=== PATIENT | female | born 1930 | race Caucasian/White ===

== ENCOUNTER → 2016-03-26 | Outpatient (CLI) | payer BC ==
[~2016-03-26] MED LIST: LVQ750 PO; MTR600 PO; NRV5 PO; OMEP20TA PO; [UNRECOGNIZED DRUG - OTHER] PO
== END ==
LOC: C.LABFOXDH 08:40
PROVIDERS: ATTEND Internal Medicine
DX: N39.0 Urinary tract infection, site not specified (principal)

== ENCOUNTER → 2016-04-15 | Outpatient (CLI) | payer BC | END | disposition home or self-care (01) | LOC: C.LABFOXDH 08:14 | PROVIDERS: ATTEND Internal Medicine | DX: E53.8 Deficiency of other specified B group vitamins (principal) ==

== ENCOUNTER → 2016-04-17 | Outpatient (CLI) | payer BC | END | disposition home or self-care (01) | LOC: C.LABFOXDH 22:30 | PROVIDERS: ATTEND Internal Medicine | DX: N39.0 Urinary tract infection, site not specified (principal) ==

== ENCOUNTER → 2017-07-23 | Outpatient (CLI) | payer BC | END | disposition home or self-care (01) | LOC: C.LABBC 14:34 | PROVIDERS: ATTEND Internal Medicine | DX: R35.0 Frequency of micturition (principal) ==

== ENCOUNTER → 2017-10-25 | Outpatient (CLI) | payer BC ==
[~2017-10-25] MED LIST changes: +ALEN70TA4 PO; +CITA20TA4 PO; +Calcium PO; +DVN/160 PO; -LVQ750 PO; -MTR600 PO; -NRV5 PO; -OMEP20TA PO; +PRLSR20 PO; +PRMVC PV; +ZINC30TA3 PO; -[UNRECOGNIZED DRUG - OTHER] PO
== END | disposition home or self-care (01) ==
LOC: C.LABBC 09:22
PROVIDERS: ATTEND Internal Medicine
DX: R19.7 Diarrhea, unspecified (principal)

== ENCOUNTER → 2017-11-03 | Outpatient (CLI) | payer BC | END | disposition home or self-care (01) | LOC: C.LABBC 13:44 | PROVIDERS: ATTEND Internal Medicine | DX: R35.0 Frequency of micturition (principal); N39.42 Incontinence without sensory awareness ==

== ENCOUNTER 2018-12-07 12:49 | Inpatient (IN) ==
[2018-12-07] MEDS ORDERED: SODIUM CHLORIDE 0.9% 500 ML IV SCH (13:45)
[2018-12-07 13:59] LABS: Basophils # (auto) 0.01 K/uL (0-0.2); Basophils % (auto) 0.1 %; Hematocrit (blood only) 38.3 % (37-47); Hemoglobin 12.8 g/dL (12.0-16.0); Immature Granulocytes # (auto) 0.01 K/uL (0.00-0.02); Immature Granulocytes % (auto) 0.1 %; Lymphocytes # (auto) 0.83 K/uL (1.2-3.4); Lymphocytes % (auto) 8.9 %; Mean Corpuscular Hemoglobin 32.7 pg (25-34); Mean Corpuscular Hgb Conc 33.4 g/dL (32-36); Mean Corpuscular Volume 97.7 fL (80-100); Mean Platelet Volume 10.6 fL (7.4-10.4); Monocytes # (auto) 0.88 K/uL (0.11-0.59); Monocytes % (auto) 9.5 %; Neutrophils # (auto) 7.56 K/uL (1.4-6.5); Neutrophils % (auto) 81.4 %; Platelet Count 194 K/uL (130-400); RDW Standard Deviation 46.5 fL (36.4-46.3); Red Blood Count 3.92 M/uL (4.2-5.4); White Blood Count 9.29 K/uL (4.8-10.8)
--- NOTE | 2018-12-07 14:00 | XRay Report ---
XR chest 1V portable CLINICAL HISTORY: weakness COMPARISON STUDY: Chest radiograph August 16, 2017. FINDINGS: Lung volumes are normal. Lungs are clear. There is no pneumothorax or pleural effusion. Car diac size is normal. Mediastinal contours are normal. There is no evidence for pulmonary edema. Patie nt is mildly rotated. Mild left basilar opacity favors atelectasis. IMPRESSION: No acute cardiopulmonary findings. Electronically signed by: Craig Jacinto M.D. 12/07/2018 1:59 PM
[2018-12-07 14:04] LABS: INR 1.1 (0.9-1.1); Prothrombin Time 10.9 Seconds (9.0-12.0)
[2018-12-07 14:10] LABS: Alanine Aminotransferase 15 U/L (12-78); Albumin Level 3.6 gm/dl (3.4-5.0); Aspartate Aminotransferase 14 U/L (15-37); BUN Creatinine Ratio 27.8 (10-20); Blood Urea Nitrogen 49 mg/dl (7-18); Calcium 10.9 mg/dl (8.5-10.1); Carbon Dioxide 23 mmol/L (21-32); Chloride 109 mmol/L (98-107); Est GFR (African American) 28.8; Est GFR (Non-African American) 24.9; Glucose 146 mg/dl (70-99); Lipase 397 U/L (73-393); Magnesium 2.5 mg/dl (1.8-2.4); Potassium 4.5 mmol/L (3.5-5.1); Sodium 141 mmol/L (136-145)
[2018-12-07 14:21] LABS: Albumin Globulin Ratio 0.4 (0.9-2); Alkaline Phosphatase 113 U/L (45-117); Bilirubin,Total 0.4 mg/dl (0.2-1); Thyroid Stimulating Hormone 0.547 uIu/ml (0.300-4.500); Total Protein 11.6 gm/dl (6.4-8.2); Troponin I < 0.015 ng/ml (0-0.045)
[2018-12-07] MEDS ORDERED: SODIUM CHLORIDE 0.9% 500 ML IV ONE (14:57)
--- NOTE | 2018-12-07 15:53 | CT Scan Report ---
CT head/brain wo con CLINICAL HISTORY: 88 years-old Female presenting with fatigue, weakness. TECHNIQUE: Multidetector CT imaging of the head was performed without the use of intravenous contrast . IV contrast: None. One or more dose lowering techniques were used consistent with the principles of ALARA (as low as reasonably achievable), including automatic exposure control, mA or kV adjustment t o individual patient size, and/or use of iterative reconstruction. COMPARISON: 08/16/2017. CT DOSE (mGy.cm): The estimated cumulative dose is 1328.02 FINDINGS: Head Charger topogram: Unremarkable. Proportional ventricular and sulcal prominence, likely age-related parenchymal volume loss. No hemorr myrtle. Significant calcifications noted in the basal ganglia and cerebellar hemispheres. Periventricul ar and subcortical white matter hypoattenuation, nonspecific but likely indicative of chronic small v essel ischemic change. No acute territorial infarct. No mass effect or midline shift. No extra-axial fluid collection. Paranasal sinuses and mastoid air cells clear. Calvarium intact. IMPRESSION: 1. Chronic small vessel ischemic change. No acute intracranial abnormality. Electronically signed by: Otis Smith M.D. 12/07/2018 3:52 PM
--- NOTE | 2018-12-07 16:24 | CT Scan Report ---
ABDOMEN AND PELVIS CT WITHOUT CONTRAST CT DOSE: 1328.02 mGy.cm HISTORY: vomiting, weakness TECHNIQUE: Multiaxial CT images of the abdomen and pelvis were performed without contrast. A dose lo wering technique was utilized adhering to the principles of ALARA. COMPARISON STUDY: Abdomen and pelvis CT 08/17/2017. FINDINGS: Patchy densities at the lung bases favor mild dependent change. No pneumoperitoneum. No pne umatosis. The left total hip arthroplasty. Thickened trabeculae within the right hemipelvis and bilat eral femurs. This favors Paget's disease. This remains unchanged. Moderate compression deformity at L 1 demonstrating up to 50% loss of height which is new from the prior study. This is technically age i ndeterminate. However, there is no significant paravertebral edema to suggest an acute fracture. Stab le hypodense hepatic and right renal lesions. No gallbladder wall thickening. The unenhanced spleen, adrenal glands, and pancreas are unremarkable. Bilateral nephrolithiasis. No hydronephrosis. No retro peritoneal lymphadenopathy. Mild bladder wall thickening. The lower uterine segment, cervix, and vagi na are fluid-filled and distended. There is a small focus of gas within the vagina and endometrium. M ild thickening of the vaginal wall. A 6.5 cm stool ball within the rectum. Suboptimal evaluation for bowel pathology due to the lack of intravenous and oral contrast. However, there is no definite bowel wall thickening or obstruction. Normal appendix. Increase in size in the 6.2 cm septated left ovaria n cyst. IMPRESSION: 1. The lower uterine segment, cervix, and vagina are fluid-filled and distended. There is a small fo cus of gas within the vagina and endometrium. Mild thickening of the vaginal wall. This is nonspecifi c but underlying infection cannot be excluded. Clinical correlation and pelvis exam recommended for f urther evaluation. 2. Interval development of a moderate L1 compression fracture demonstrating up to 50% loss of height. However, this is technically age indeterminate and favors an old fracture. 3. Increase in size in the 6.2 cm septated left ovarian cyst. This is considered pathologic in a post menopausal female. 4. No bowel wall thickening or obstruction. 5. Normal appendix. 6. Bilateral nephrolithiasis. No hydronephrosis. Electronically signed by: Stephon Cosme M.D. 12/07/2018 4:22 PM
[2018-12-07 17:21] LABS: Appearance Urine Cloudy (Clear); Bilirubin Urine Negative (Negative); Blood Urine Trace (Negative); Color Urine Yellow; Glucose Urine UA Negative (Negative); Ketones Urine Negative (Negative); Leukocyte Esterase Urine 2+ (Negative); Nitrite Urine Negative (Negative); Protein Urine Trace (Negative); Urobilinogen Urine Negative (Negative)
[2018-12-07] MEDS ORDERED: cefTRIAXone SODIUM 1,000 MG/50 ML BAG IV STA (17:33)
[2018-12-07 17:43] LABS: Epithelial Cell Urine >30 /lpf (0-5)
[2018-12-07 17:44] LABS: Bacteria Urine 3+ (Negative)
[2018-12-07 17:49] LABS: RBC Urine 0-4 /hpf (0-4)
--- NOTE | 2018-12-07 18:00 | History & Physical Report ---
Date of Service December 07, 2018 Assessment & Plan (1) Acute UTI: This is an 88yo F [facility] resident with a PMH of vascular dementia, HTN, osteoporosis, recurrent UTIs and other medical problems listed below who presents with weakness and lethargy for the past 2 weeks and was found to have a urinary tract infection and acute kidney injury. -Has completed approximately 14 days of PO antibiotics (first Bactrim, then Macrobid) -History of recurrent UTIs in the setting of incontinence -Afebrile, hemodynamically stable. No leukocytosis. UA abnormal -Rocephin started empirically -Follow urine culture (2) PAT (acute kidney injury): Creatinine elevated to 1.78 (baseline Cr ~ 0.8) in setting of UTI, recent abx use -Gentle IV fluids -Monitor BMP (3) Generalized weakness: In setting of acute UTI -PT/OT evaluations -Fall precautions (4) Compression fracture of L1 vertebra: Back pain for past few weeks -No spinal tenderness to palpation -CT abd/pelvis with interval development of a moderate L1 compression fracture demonstrating up to 50% loss of height. However, this is technically age indeterminate and favors an old fracture -Scheduled tylenol, warm compress (5) HTN (hypertension): Continue valsartan (6) Mood disorder: Continue SSRI (7) Vascular dementia: Good comprehension but non-verbal at baseline DVT Ppx: SQ heparin Code status: FULL per discussion with daughter/POA PCP: Bryan Dispo: Observation med/surg. Discharge planning ordered. Patient seen in collaboration with Dr. Lofton. Please see addendum. History of Present Illness Chief Complaint: back pain Primary Care Provider: [facility] This is an 88yo F [facility] resident with a PMH of vascular dementia, HTN, osteoporosis, recurrent UTIs and other medical problems listed below who presents with weakness and lethargy for the past 2 weeks. Has history of recurrent UTIs in the setting of incontinence and was recently diagnosed with one at her personal care facility. She completed course of Bactrim without improvement and has been taking Macrobid for the past 3 days, per daughter at bedside. History obtained from daughter due to patient's cognitive state. Patient vomited twice today prior to arrival. Has also seemed weaker and less aware than baseline, although is essentially non-verbal with advanced dementia. Has also been mentioning back pain, which is unusual for her. Unable to obtain full ROS 2/2 cognitive state. No documented fever. Allergies Allergy/AdvReac Type Severity Reaction Status Date / Time Fish Containing Products Allergy Unknown "SEAFOOD Verified 12/07/18 14:16 ALLERGY" ; RXN = "SWELLING" iodine Allergy Unknown UNKNOWN Verified 12/07/18 14:16 shellfish derived Allergy Unknown "SWELLING" Verified 12/07/18 14:16 WITH "SEAFOOD" Home Medications Home Medications Medication Instructions Recorded Confirmed Type alendronate 70 mg PO WK #0 tab 08/16/17 12/07/18 History omeprazole 20 mg PO DAILY #0 cap 08/16/17 12/07/18 History valsartan 160 mg PO DAILY #0 tab 08/16/17 12/07/18 History zinc [Chelated Zinc] 50 mg PO DAILY #0 08/16/17 12/07/18 History citalopram 20 mg tablet 20 mg PO DAILY #7 tab 10/11/18 12/07/18 Rx cranberry 500 mg PO DAILY 12/07/18 12/07/18 History ibuprofen [IBU] 600 mg PO Q6 PRN 12/07/18 12/07/18 History nitrofurantoin monohyd/m-cryst 100 mg PO BID 12/07/18 12/07/18 History Past Med/Surg History Medical History Mood disorder (Chronic) Vascular dementia (Chronic) Surgical History H/O lithotripsy (Chronic) History of hip replacement (Chronic) Family History Other Family history non-contributory Social History Current Living Situation: Personal Care Facility Feels Safe at Home: Yes Smoking Status: Unknown if ever smoked Hx Alcohol Use: No Hx Substance Use: No Review of Systems Review of Systems: Unobtainable due to cognitive status Physical Exam Physical Exam: General Appearance: WD/WN, vitals as above, elderly female resting comfortably. Alert and cooperative but non-verbal 2/2 dementia Head: normocephalic, atraumatic Eyes: normal inspection, PERRL, conjunctivae normal, anicteric sclerae ENT: hard of hearing, external ear and nose normal, oropharynx normal Neck: trachea midline, no thyromegaly normal visual inspection Respiratory: normal respiratory effort, lungs clear to auscultation, no wheeze, rales, rhonchi. Normal insp/exp effort, no accessory muscle use Cardiovascular: regular rate, rhythm, no murmur appreciated, normal peripheral pulses. Vessels: no JVD or carotid bruit Chest: normal inspection of chest Abdomen/GI: normal bowel sounds, soft, nontender, no hepatosplenomegaly Extremities/Musculoskelatal: No TTP along thoracic or lumbar spine. No deformities visualized. No cyanosis or clubbing Neurologic: PERRL, EOMI, accommodation nl, no face palsy, no dysarthria CN's II-XI intact bilaterally and moves all extremities Psychiatric: Alert, difficult to assess orientation due to non-verbal state, follows commands, euthymic affect Skin: no rashes, normal color, warm/dry Results & Data Vital Signs (Past 12 Hours) Vital Signs Temp Pulse Pulse Resp BP BP Pulse Ox 12/07/18 14:44 79 20 133/81 97 12/07/18 13:40 95 12/07/18 12:44 37.1 C 98 H 20 127/61 92 Laboratory Results Short CBC 12/07/18 Range/Units 13:42 WBC 9.29 (4.8-10.8) K/uL Hgb 12.8 (12.0-16.0) g/dL Hct 38.3 (37-47) % Plt Count 194 (130-400) K/uL BMP 12/07/18 13:42 Sodium 141 Potassium 4.5 Chloride 109 H Carbon Dioxide 23 BUN 49 H Creatinine 1.78 H Glucose 146 H Calcium 10.9 H Cardiac Enzymes 12/07/18 12/07/18 Range/Units 13:42 13:42 Troponin I < 0.015 Cancelled (0-0.045) ng/ml Liver Function 12/07/18 Range/Units 13:42 Total Bilirubin 0.4 (0.2-1) mg/dl AST 14 L (15-37) U/L ALT 15 (12-78) U/L Alkaline Phosphatase 113 (45-117) U/L Albumin 3.6 (3.4-5.0) gm/dl Urine 12/07/18 Range/Units 14:45 Urine Color Yellow Urine Appearance Cloudy A (Clear) Urine pH 5.0 (4.5-7.5) Ur Specific [place] 1.020 (1.000-1.030) Urine Protein Trace H (Negative) Urine Glucose (UA) Negative (Negative) Supervising Physician Co-Signing Physician Notes I, Dr. Jelani Lofton, have seen and examined the patient with physician data assistant and agree with the assessment and plan as above and would like to comment that This is an 88 year old female with vascular dementia whose baseline is nonverbal with decrease level of function and more lethargy from [facility] and seen at bedside by hospitalist not to be in acute distress and was able to follow our verbal directions. History obtained from Sak[facility] [phone] On exam General: awake, nonverbal, alert, follows verbal directions Heart: regular rate Lungs: breathing on room air, no wheezing Abdomen: soft, nontender, positive bowel sounds Back: when patient's back was palpated, she did not grimace in acute pain Patient found to have URINARY TRACT INFECTION despite being on outpatient antibiotics for around 1 and a half weeks and also with ACUTE KIDNEY INJURY from urinary tract infection versus elevated creatinine from recent bactrim use. Patient to get IV ceftriaxone and IV fluids. Patient has COMPRESSION FRACTURE of L1 vertebra which is likely chronic and being managed at this time co nservatively with warm compress and analgesics. Patient found to have LEFT OVARIAN CYST. ED physician had communicated with OBGYN and medical team was told this issue can be looked into nonemergently as outpatient. Patient's daughter prefers that if outpatient intervention such as biopsy is needed then she would prefer intervention to be done in the hospital given that it is difficult to have outpatient workup performed because of patient's age, debility, and dementia My colleague Dr. Tapia will be taking over the patient's care as hospitalist physician starting on 12/08/18
--- NOTE | 2018-12-07 18:19 | Emergency Department Note ---
Entered by Andrea Smalls acting as a scribe for History of Present Illness General Chief complaint: Illness Source: patient History of Present Illness Provider complaint: Lethargy Onset (ago): hour(s) (This morning) Location: head Pain Consistency: + other (Worsening) Relieved By: + none Exacerbated By: + none Associated symptoms: + other (Nonverbal ) The patient is an 88 year old female who presents to the Emergency Room from [facility] due to the staffs concern over increased lethargy that they n oticed this morning. Per EMS, the staff at [facility] told them that the patient was having trouble swallowing this morning. They also informed EMS that the patient is lethargic, altered and weak at baseline, but today it is worse. The patient is also non verbal at baseline. Per the patient's EMR, the patient was started on Macrobid 2 days ago for a possible UTI. The patient denies any abdominal pain or nausea. HPI is limited secondary to patient's altered mental status. Home Medications Home Medications Medication Instructions Recorded Confirmed Type alendronate 70 mg PO WK #0 tab 08/16/17 12/07/18 History omeprazole 20 mg PO DAILY #0 cap 08/16/17 12/07/18 History valsartan 160 mg PO DAILY #0 tab 08/16/17 12/07/18 History zinc [Chelated Zinc] 50 mg PO DAILY #0 08/16/17 12/07/18 History citalopram 20 mg tablet 20 mg PO DAILY #7 tab 10/11/18 12/07/18 Rx cranberry 500 mg PO DAILY 12/07/18 12/07/18 History ibuprofen [IBU] 600 mg PO Q6 PRN 12/07/18 12/07/18 History nitrofurantoin monohyd/m-cryst 100 mg PO BID 12/07/18 12/07/18 History Allergies Allergy/AdvReac Type Severity Reaction Status Date / Time Fish Containing Products Allergy Unknown "SEAFOOD Verified 12/07/18 14:16 ALLERGY" ; RXN = "SWELLING" iodine Allergy Unknown UNKNOWN Verified 12/07/18 14:16 shellfish derived Allergy Unknown "SWELLING" Verified 12/07/18 14:16 WITH "SEAFOOD" Past Med/Surg History Medical History Hip pain (Acute 10/23/13) UTI (urinary tract infection) (Acute) Altered mental status (Acute 10/23/13) Vascular dementia (Chronic) Surgical History H/O lithotripsy (Chronic) History of hip replacement (Chronic) Family History Other Family history non-contributory Social History Feels Safe at Home: Yes Smoking Status: Unknown if ever smoked Review of Systems See HPI for pertinent positives & negatives. Other (Limited secondary to patient's altered mental status) Physical Exam Vital Signs Vital Signs - 24 hr 12/07/18 12:44 12/07/18 13:40 12/07/18 14:44 Temperature 37.1 C Temperature Source Oral Sepsis Recent Fever Within 48 Hours No Sepsis Action Taken by Nursing No Action Required Pulse Rate 98 H Pulse Rate [Bilateral] 79 Pulse Rate from SpO2 Sensor Respiratory Rate 20 20 Respiratory Effort / Characteristics Non-Labored Respiratory Depth Normal Blood Pressure 127/61 Blood Pressure [Right Arm] 133/81 Blood Pressure Mean 83 Blood Pressure Mean [Right Arm] 98 Blood Pressure Position Lying Pulse Oximetry 92 95 97 Oxygen Delivery Method Room Air Room Air 12/07/18 15:00 12/07/18 15:30 12/07/18 18:00 Temperature Temperature Source Sepsis Recent Fever Within 48 Hours Sepsis Action Taken by Nursing Pulse Rate 73 74 81 Pulse Rate [Bilateral] Pulse Rate from SpO2 Sensor 81 Respiratory Rate 17 16 17 Respiratory Effort / Characteristics Respiratory Depth Blood Pressure 127/67 129/60 133/68 Blood Pressure [Right Arm] Blood Pressure Mean 87 83 89 Blood Pressure Mean [Right Arm] Blood Pressure Position Pulse Oximetry 96 Oxygen Delivery Method Room Air GENERAL: Awake, in no distress, fatigued HENT: Normocephalic, atraumatic. EYES: Normal conjunctiva. Sclera non-icteric. NECK: Supple. No nuchal rigidity. RESPIRATORY: Clear to auscultation. No wheezes. Normal respiratory effort. CARDIAC: Normal rate. Normal rhythm. Extremities warm and well perfused. GI: Soft, non-distended. No tenderness to palpation. No rebound or guarding. RECTAL: Deferred. MUSCULOSKELETAL: Atraumatic. Chest examination reveals no tenderness. There is no CVA tenderness to palpation. LOWER EXTREMITIES: Calves are equal size bilaterally and non-tender. No edema NEURO: Alert to verbal stimuli. Nonverbal but occasionally shakes head. No facial droop. Moving all 4 extremities. SKIN: Warm and dry. No rash or jaundice noted. Course 1336: Past medical records reviewed. The patient was evaluated in room A10, and a complete history and physical examination were performed. 1453: I discussed the patient's case and plan with the patient's daughter. She fully understands the plan and is agreeable. 1650: I updated the patient on the results. I also inserted a urinary catheter in the patient so that she can provide a urine sample. 1652: I spoke to Dr. Haile PARKS about the patient's case. We also discussed the patient's imaging results. 1735: I reevaluated the patient and updated her and her family on the treatment plan. They are agreed with the plan. 1744: I spoke to Lore Monzon PAC under Dr. Rolly Vargas about the patient's case. They are going to accept the patient for further evaluation. Consultations Consultation #1: I spoke to Dr. Haile PARKS about the patient's case. We also discussed the patient's imaging results. Time: 16:52 Consultation #2: I spoke to Lore Monzon PAC under Dr. Rolly Vargas about the patient's case. They are going to accept the patient for further evaluation. Time: 17:44 Administered Medications Discontinued Medications Sodium Chloride (Nss) 500 mls @ 999 mls/hr IV .Q31M CED Stop: 12/07/18 14:15 Last Infusion: 12/07/18 14:46 Dose: 0 mls/hr Documented by: [id number] Admin: 12/07/18 14:09 Dose: 999 mls/hr Documented by: [id number] Sodium Chloride (Nss) 500 mls @ 999 mls/hr IV .Q31M ONE Stop: 12/07/18 15:27 Last Infusion: 12/07/18 17:49 Dose: 0 mls/hr Documented by: [id number] Admin: 12/07/18 16:48 Dose: 999 mls/hr Documented by: [id number] Ceftriaxone Sodium (Rocephin) 1,000 mg in 50 mls @ 100 mls/hr IV NOW STA Stop: 12/07/18 18:02 Last Admin: 12/07/18 17:55 Dose: 100 mls/hr Documented by: [id number] Medical Decision Making Differential Diagnosis Differential diagnoses includes but is not limited to gastritis, peptic ulcer disease, GERD, gallbladder disease, pancreatitis, small bowel obstruction, acute coronary syndrome, pericarditis, ischemic bowel, irritable bowel disease, irr itable bowel syndrome, appendicitis, diverticulitis, malignancy, hernia, urinary tract infection, torsion, perforation, trauma, infectious. Medical Records Attestation: I reviewed the patient's medical records. Home Medications Current Medication List: was personally reviewed by me Laboratory Data Attestation: I reviewed the patient's lab results. Result diagrams: 12/07/18 13:42 12/07/18 13:42 Lab Results 12/07/18 12/07/18 12/07/18 Range/Units 13:42 13:42 13:42 WBC 9.29 (4.8-10.8) K/uL RBC 3.92 L (4.2-5.4) M/uL Hgb 12.8 (12.0-16.0) g/dL Hct 38.3 (37-47) % MCV 97.7 (80-100) fL MCH 32.7 (25-34) pg MCHC 33.4 (32-36) g/dL RDW Std Deviation 46.5 H (36.4-46.3) fL RDW Coeff of Campos 13.0 (11.5-14.5) % Plt Count 194 (130-400) K/uL MPV 10.6 H (7.4-10.4) fL Immature Gran % (Auto) 0.1 % Neut % (Auto) 81.4 % Lymph % (Auto) 8.9 % Cam[place] % (Auto) 9.5 % Eos % (Auto) 0.0 % Baso % (Auto) 0.1 % Immature Gran # (Auto) 0.01 (0.00-0.02) K/uL Neut # (Auto) 7.56 H (1.4-6.5) K/uL Lymph # (Auto) 0.83 L (1.2-3.4) K/uL [place] # (Auto) 0.88 H (0.11-0.59) K/uL Eos # (Auto) 0.00 (0-0.5) K/uL Baso # (Auto) 0.01 (0-0.2) K/uL PT 10.9 (9.0-12.0) Seconds INR 1.1 (0.9-1.1) Sodium 141 (136-145) mmol/L Potassium 4.5 (3.5-5.1) mmol/L Chloride 109 H (98-107) mmol/L Carbon Dioxide 23 (21-32) mmol/L Anion Gap 9.0 (3-11) BUN 49 H (7-18) mg/dl Creatinine 1.78 H (0.6-1.2) mg/dl Est Cr Clr Drug Dosing Not Reportable Est GFR ( Amer) 28.8 Est GFR (Non-Af Amer) 24.9 BUN/Creatinine Ratio 27.8 H (10-20) Glucose 146 H (70-99) mg/dl Calcium 10.9 H (8.5-10.1) mg/dl Magnesium 2.5 H (1.8-2.4) mg/dl Total Bilirubin 0.4 (0.2-1) mg/dl AST 14 L (15-37) U/L ALT 15 (12-78) U/L Alkaline Phosphatase 113 (45-117) U/L Troponin I < 0.015 (0-0.045) ng/ml Total Protein 11.6 H (6.4-8.2) gm/dl Albumin 3.6 (3.4-5.0) gm/dl Globulin 8.0 H (2.5-4.0) gm/dl Albumin/Globulin Ratio 0.4 L (0.9-2) Lipase 397 H (73-393) U/L TSH 0.547 (0.300-4.500) uIu/ml Urine Color Urine Appearance (Clear) Urine pH (4.5-7.5) Ur Specific [place] (1.000-1.030) Urine Protein (Negative) Urine Glucose (UA) (Negative) Urine Ketones (Negative) Urine Blood (Negative) Urine Nitrite (Negative) Urine Bilirubin (Negative) Urine Urobilinogen (Negative) Ur Leukocyte Esterase (Negative) Urine RBC (0-4) /hpf Urine WBC (0-5) /hpf Ur Epithelial Cells (0-5) /lpf Urine Bacteria (Negative) 09/25/19 09/25/19 Range/Units 13:42 14:45 WBC (4.8-10.8) K/uL RBC (4.2-5.4) M/uL Hgb (12.0-16.0) g/dL Hct (37-47) % MCV (80-100) fL MCH (25-34) pg MCHC (32-36) g/dL RDW Std Deviation (36.4-46.3) fL RDW Coeff of Campos (11.5-14.5) % Plt Count (130-400) K/uL MPV (7.4-10.4) fL Immature Gran % (Auto) % Neut % (Auto) % Lymph % (Auto) % Cam[place] % (Auto) % Eos % (Auto) % Baso % (Auto) % Immature Gran # (Auto) (0.00-0.02) K/uL Neut # (Auto) (1.4-6.5) K/uL Lymph # (Auto) (1.2-3.4) K/uL Cam[place] # (Auto) (0.11-0.59) K/uL Eos # (Auto) (0-0.5) K/uL Baso # (Auto) (0-0.2) K/uL PT (9.0-12.0) Seconds INR (0.9-1.1) Sodium (136-145) mmol/L Potassium (3.5-5.1) mmol/L Chloride (98-107) mmol/L Carbon Dioxide (21-32) mmol/L Anion Gap (3-11) BUN (7-18) mg/dl Creatinine (0.6-1.2) mg/dl Est Cr Clr Drug Dosing Est GFR ( Amer) Est GFR (Non-Af Amer) BUN/Creatinine Ratio (10-20) Glucose (70-99) mg/dl Calcium (8.5-10.1) mg/dl Magnesium (1.8-2.4) mg/dl Total Bilirubin (0.2-1) mg/dl AST (15-37) U/L ALT (12-78) U/L Alkaline Phosphatase (45-117) U/L Troponin I Cancelled (0-0.045) ng/ml Total Protein (6.4-8.2) gm/dl Albumin (3.4-5.0) gm/dl Globulin (2.5-4.0) gm/dl Albumin/Globulin Ratio (0.9-2) Lipase Cancelled (73-393) U/L TSH (0.300-4.500) uIu/ml Urine Color Yellow Urine Appearance Cloudy A (Clear) Urine pH 5.0 (4.5-7.5) Ur Specific [place] 1.020 (1.000-1.030) Urine Protein Trace H (Negative) Urine Glucose (UA) Negative (Negative) Urine Ketones Negative (Negative) Urine Blood Trace H (Negative) Urine Nitrite Negative (Negative) Urine Bilirubin Negative (Negative) Urine Urobilinogen Negative (Negative) Ur Leukocyte Esterase 2+ H (Negative) Urine RBC 0-4 (0-4) /hpf Urine WBC 5-10 H (0-5) /hpf Ur Epithelial Cells >30 H (0-5) /lpf Urine Bacteria 3+ H (Negative) Imaging Data Radiologist's Impression: Radiology results as stated below per my review and the radiologist's interpretation: XR chest 1V portable CLINICAL HISTORY: weakness COMPARISON STUDY: Chest radiograph August 16, 2017. FINDINGS: Lung volumes are normal. Lungs are clear. There is no pneumothorax or pleural effusion. Cardiac size is normal. Mediastinal contours are normal. There is no evidence for pulmonary edema. Patient is mildly rotated. Mild left basilar opacity favors atelectasis. IMPRESSION: No acute cardiopulmonary findings. Electronically signed by: Craig Jacinto M.D. 12/07/2018 1:[address] head/brain wo con CLINICAL HISTORY: 88 years-old Female presenting with fatigue, weakness. TECHNIQUE: Multidetector CT imaging of the head was performed without the use of intravenous contrast. IV contrast: None. One or more dose lowering techniques were used consistent with the principles of ALARA (as low as reasonably achievable), including automatic exposure control, mA or kV adjustment to individual patient size, and/or use of iterative reconstruction. COMPARISON: 08/16/2017. CT DOSE (mGy.cm): The estimated cumulative dose is 1328.02 FINDINGS: Maintenance Person topogram: Unremarkable. Proportional ventricular and sulcal prominence, likely age-related parenchymal volume loss. No hemorrhage. Significant calcifications noted in the basal ganglia and cerebellar hemispheres. Periventricular and subcortical white matter hypoattenuation, nonspecific but likely indicative of chronic small vessel ischemic change. No acute territorial infarct. No mass effect or midline shift. No extra-axial fluid collection. Paranasal sinuses and mastoid air cells clear. Calvarium intact. IMPRESSION: 1. Chronic small vessel ischemic change. No acute intracranial abnormality. Electronically signed by: Otis Smith M.D. 12/07/2018 3:52 PM A[address]OMEN AND PELVIS CT WITHOUT CONTRAST CT DOSE: 1328.02 mGy.cm HISTORY: vomiting, weakness TECHNIQUE: Multiaxial CT images of the abdomen and pelvis were performed without contrast. A dose lowering technique was utilized adhering to the principles of ALARA. COMPARISON STUDY: Abdomen and pelvis CT 08/17/2017. FINDINGS: Patchy densities at the lung bases favor mild dependent change. No pneumoperitoneum. No pneumatosis. The left total hip arthroplasty. Thickened trabeculae within the right hemipelvis and bilateral femurs. This favors Paget's disease. This remains unchanged. Moderate compression deformity at L1 demonstrating up to 50% loss of height which is new from the prior study. This is technically age indeterminate. However, there is no significant paravertebral edema to suggest an acute fracture. Stable hypodense hepatic and right renal le sions. No gallbladder wall thickening. The unenhanced spleen, adrenal glands, and pancreas are unremarkable. Bilateral nephrolithiasis. No hydronephrosis. No retroperitoneal lymphadenopathy. Mild bladder wall thickening. The lower uterine segment, cervix, and vagina are fluid-filled and distended. There is a small focus of gas within the vagina and endometrium. Mild thickening of the vaginal wall. A 6.5 cm stool ball within the rectum. Suboptimal evaluation for bowel pathology due to the lack of intravenous and oral contrast. However, there is no definite bowel wall thickening or obstruction. Normal appendix. Increase in size in the 6.2 cm septated left ovarian cyst. IMPRESSION: 1. The lower uterine segment, cervix, and vagina are fluid-filled and distended. There is a small focus of gas within the vagina and endometrium. Mild thickening of the vaginal wall. This is nonspecific but underlying infection cannot be excluded. Clinical correlation and pelvis exam recommended for further evaluation. 2. Interval development of a moderate L1 compression fracture demonstrating up to 50% loss of height. However, this is technically age indeterminate and favors an old fracture. 3. Increase in size in the 6.2 cm septated left ovarian cyst. This is considered pathologic in a postmenopausal female. 4. No bowel wall thickening or obstruction. 5. Normal appendix. 6. Bilateral nephrolithiasis. No hydronephrosis. Electronically signed by: Stephon Cosme M.D. 12/07/2018 4:22 PM ECG Data Attestation: I personally reviewed and interpreted this ECG as follows: Indication: altered mental status Rate (beats per minute): 96 Rhythm: normal sinus Findings: + nonspecific-ST abn (Lateral); no PVC Comparison ECG Date: from (08/18/17) Change: no significant change Blood Pressure Blood Pressure Findings: Elevated blood pressure Blood Pressure Disposition: further management by hospitalist JOHNNIE Narrative Patient is a 88-year-old female with a past medical history including GERD, hypertension, Paget's disease, and vascular dementia presenting from her facility today with reports of increased lethargy. Evidently the patient is normally nonverbal but seemed more lethargic. Per EMS report the staff states that she is at her baseline as far as being nonverbal and having some difficulty swallowing. Was recently diagnosed with a UTI which is frequent for her. A loose cough is noted. Patient is nonverbal but occasionally nods. Attempted to contact the facility to get more information; they report decreased weight for some weeks and vomiting the last several days. Much more fatigued and now unable to walk at the facility per repor. Appears she is been placed on Macrobid for possible UTI 2 days ago. Basic labs were obtained as well as an EKG and urinalysis. CT the head was obtained given questionable change in m ental status and increased fatigue was obtained as well as a CT abdomen pelvis to look for other possible intra-abdominal pathology to explain her vomiting and back pain. No recent trauma is reported. Laboratory studies do indicate evidence of acute kidney injury likely dehydrational and given a fluid bolus. No significant elect light abnormality. BUN is moderately elevated. No evidence of leukocytosis or anemia. Lipase slightly elevated but lower suspicion for acute pancreatitis. Negative troponin. Chest x-ray without acute findings. CT of the head is unremarkable for acute pathology. CT of the abdomen pelvis shows evidence of distention and fluid-filled distended uterine cervix and vagina. No evidence of acute kidney stone. Left ovarian cyst is noted concerning in her postmenopausal state. Normal appendix. No evidence of kidney stone. Age-indeterminate L1 compression fracture is noted. No evidence of bleeding or mckenzie purulent material on gross external exam. Deferring pelvic at this time. Discussed with gynecology recommended outpatient follow-up. Urinalysis appears positive and will give a dose of ceftriaxone. Admit for any antibiotics improvement of her mental status and hydration. Updated daughter at bedside. Impression & Plan Acute UTI, Dehydration, PAT (acute kidney injury), Weakness Discharge Plan Visit Data Chief Complaint: Illness ED Provider: Torrey Crowell Discharge Problem: Acute UTI, Dehydration, PAT (acute kidney injury), Weakness Patient Disposition: Being Evaluated by Hospitalist Forms Stand Alone Forms: My [facility] Prescriptions Prescriptions: No Action zinc [Chelated Zinc] 50 mg Tablet 50 mg PO DAILY Qty: 0 RF: 0 alendronate 70 mg Tablet 70 mg PO WK Qty: 0 RF: 0 omeprazole 20 mg Capsule,Delayed Release(Dr/Ec) 20 mg PO DAILY Qty: 0 RF: 0 valsartan 160 mg Tablet 160 mg PO DAILY Qty: 0 RF: 0 citalopram 20 mg tablet 20 mg PO DAILY Qty: 7 RF: 1 ibuprofen [IBU] 600 mg tablet 600 mg PO Q6 PRN (Reason: Pain) RF: 0 cranberry 500 mg Capsule 500 mg PO DAILY RF: 0 nitrofurantoin monohyd/m-cryst 100 mg capsule 100 mg PO BID RF: 0 [facility]errals [facility] - The scribe's documentation has been prepared under my direction and personally reviewed by me in its entirety. I confirm that the note above accurately reflects all work, treatment, procedures, and medical decision making performed by me.
[2018-12-07] MEDS ORDERED: ONDANSETRON INJ 2 MG/ML 2 ML VIAL IV PRN (20:14)
[2018-12-07] MEDS ORDERED: POLYETHYLENE (MIRALAX) 17 GM PACK PO PRN (20:14)
[2018-12-07] MEDS: SODIUM CHLORIDE 0.9% 1000ML 1,000 ML IV SCH (21:27)
[2018-12-07] MEDS: ACETAMINOPHEN 500 MG TAB PO SCH (21:28)
[2018-12-07] MEDS: HEPARIN SOD 5,000 UNIT/0.5 ML VIAL SQ SCH (21:28)
[2018-12-08] MEDS: ACETAMINOPHEN 500 MG TAB PO SCH ×3 (06:05→21:47)
[2018-12-08 07:36] LABS: Hematocrit (blood only) 28.4 % (37-47); Hemoglobin 9.3 g/dL (12.0-16.0); Mean Corpuscular Hemoglobin 32.1 pg (25-34); Mean Corpuscular Hgb Conc 32.7 g/dL (32-36); Mean Corpuscular Volume 97.9 fL (80-100); Mean Platelet Volume 10.4 fL (7.4-10.4); Platelet Count 138 K/uL (130-400); RDW Standard Deviation 46.6 fL (36.4-46.3); White Blood Count 4.23 K/uL (4.8-10.8)
[2018-12-08 07:50] LABS: BUN Creatinine Ratio 35.3 (10-20); Calcium 8.9 mg/dl (8.5-10.1); Est GFR (African American) 48.3; Est GFR (Non-African American) 41.7; Potassium 3.9 mmol/L (3.5-5.1)
[2018-12-08] MEDS ORDERED: INFLUENZA ADMINISTRATION CHARGE ONE (08:00)
[2018-12-08] MEDS ORDERED: INFLUENZA VIRUS QUAD VACCINE 0.5 ML SYR IM ONE (08:00)
[2018-12-08] MEDS ORDERED: PNEUMOCOCCAL POLYSACCHARIDES 25 MCG/0.5 ML VIAL/SYR IM ONE (08:00)
[2018-12-08] MEDS ORDERED: PNEUMOCOCCAL ADMINISTRATION CHARGE ONE (08:00)
[2018-12-08] MEDS ORDERED: ZINC 50 MG PO SCH (09:00)
[2018-12-08] MEDS ORDERED: NON-FORMULARY MEDICATION (Cranberry 500 MG) PO SCH (09:00)
[2018-12-08] MEDS: CITALOPRAM 20 MG TAB PO SCH (09:38)
[2018-12-08] MEDS: HEPARIN SOD 5,000 UNIT/0.5 ML VIAL SQ SCH ×2 (09:39→21:37)
[2018-12-08] MEDS: PANTOprazole 40 MG TAB PO SCH (09:39)
[2018-12-08] MEDS: VALSARTAN 80 MG TAB PO SCH (09:39)
[2018-12-08] MEDS: SODIUM CHLORIDE 0.9% 1000ML 1,000 ML IV SCH (13:29)
[2018-12-08] MEDS ORDERED: TRAMADOL HCL 50 MG TABLET PO PRN (13:36)
--- NOTE | 2018-12-08 14:07 | OB/GYN Consultation ---
Date of Consultation December 08, 2018 Assessment & Plan (1) Ovarian cyst: Cyst is essentially stable from one year ago. On ultrasound one year ago it was 5.8x4.1x4.6cm and simple, high left lateral. on CT is is 6.2cm and has a septation. There is no ascites, omental caking or other concerning signs of ovarian cancer. Given its minimal growth over the last year, the probability of this being cancer is small. However, cannot be certain without removal which would be major surgery. Plan ultrasound to evaluate further. If essentially unchanged, would not recommend intervention given the patient's age and status. RE-check ca125. Was 14 last year. If still negative, again would argue against a malignant process. (2) Vaginal discharge: DDx would include infection, mucous or possibly endometrial cancer. It is more d/c than I would consider normal. Most likely it is a mucocele of the uterus or cervix. It is possible that there is a cancer in her uterus presenting with this d/c. However, there is no mass noted in the uterus. I was unable to biopsy in the bed secondary to visualization and patient discomfort. I think the probability of endo cancer is remote as well. Want to see what her endometrium looks like on ultrasound. Her endometrium last year was 4mm and I would expect that if there was an endometrial process, the lining would be thickened. If the endometrium looks normal, would NOT recommend a biopsy. Also obtained a genital culture. If genital culture shows infection would treat that first. I called the patient's daughter and informed her of my findings. If we feel she needs an endo biopsy she really prefers we do it here while she is in hospital. I told her we would reevaluate after the us and culture have returned. I also discussed this case with the patient's service line coordinator, Dr. Cooper, who agr ees with the above assessment and plan. History of Present Illness Reason for Consultation: abnormal CT scan Requesting Physician: Lore Villalobos Attending Physician: Santos Tapia MD History of Present Illness Patient is an 88yowf, PM who I have been consulted on for an abnormal CT scan. 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 Cooper. Patient was admitted because of increasing lethargy and diagnosed with UTI not responsive to outpatient management. Patient's daughter tells me she has "constant UTI" . Has a recent history of almost dying from complications of a kidney stone. She has been living in an assisted living /snf for awhile. The patient had an abdominal/pelvic CT scan that shows a 6.2cm septated left ovarian cyst that measures 6.2cm. The CT also shows SHYANNE/cervix/vagina that is fluid-filled and distended, also gas within these areas, mild thickening of the vaginal wall. Patient had a CT scan a year ago that showed a 4.8cm cyst with a septation in the left adnexa, but not the other abnormalities. She then saw Dr. Cooper in the office where she had an ultrasound showing a 5.8cm simple cyst that was left lateral and high. Endometrium was thin and CA-125 was 14. She was so debilitated at that time that Dr. Cooper was unable to perform an exam as the patient could not get on the examining table. It seems at that time, the decision was made to monitor and an ultrasound in 4 months was recommended. That was not obtained. Patient's daughter notes that it is extremely difficult to get the patient into the office and really desires an exam to be preformed while she is in the hospital. I have advised the daughter that my ability to examine the patient here in the hospital is limited because I do not have an adequate table. I asked her if she thought we would be able to get her to labor and delivery for exam in a labor bed. Nursing thinks this will be difficult in the state she is currently in. I have offered to attempt an exam in the bed on a bedpan and will do the best that I can. Discussed with the daughter that the cyst is likely NOT cancer as it has not significantly grown in the last year and there are no other changes in the CT that makes us suspicious for that, like ascites, other abnl structures, omental caking. The only way we can know is to removed the ovary, not biopsy, that would involve a major surgery for this patient. She notes she is POA for her mother and consents to her having an exam. before examining the patient, I explained why I was there and what I was doing. When asked if it was ok to proceed, she shook her head yes. Patient does not have an elevated WBC. Allergies Allergy/AdvReac Type Severity Reaction Status Date / Time Fish Containing Products Allergy Unknown "SEAFOOD Verified 12/07/18 14:16 ALLERGY" ; RXN = "SWELLING" iodine Allergy Unknown UNKNOWN Verified 12/07/18 14:16 shellfish derived Allergy Unknown "SWELLING" Verified 12/07/18 14:16 WITH "SEAFOOD" Home Medications Home Medications Medication Instructions Recorded Confirmed Type alendronate 70 mg PO WK #0 tab 08/16/17 12/07/18 History omeprazole 20 mg PO DAILY #0 cap 08/16/17 12/07/18 History valsartan 160 mg PO DAILY #0 tab 08/16/17 12/07/18 History zinc [Chelated Zinc] 50 mg PO DAILY #0 08/16/17 12/07/18 History citalopram 20 mg tablet 20 mg PO DAILY #7 tab 10/11/18 12/07/18 Rx cranberry 500 mg PO DAILY 12/07/18 12/07/18 History ibuprofen [IBU] 600 mg PO Q6 PRN 12/07/18 12/07/18 History nitrofurantoin monohyd/m-cryst 100 mg PO BID 12/07/18 12/07/18 History Patient History Medical History HTN (hypertension) (Chronic) Compression fracture of L1 vertebra (Acute) Mood disorder (Chronic) Vascular dementia (Chronic) Nephrolithiasis Surgical History H/O lithotripsy (Chronic) History of hip replacement (Chronic) H/O section S/P tonsillectomy and adenoidectomy Family History Other Family history non-contributory Social History Preferred Language: Sinhala Communication Ability: Impaired 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 no blood noted. nl BUS a speculum was placed with difficulty secondary to patient discomfort. I was able to open this enough to see a thicker, yellow d/c within the vagina. this was cultured. No blood noted . cx was visualized with difficulty, it seemed slightly off to the patient's left. no obvious d/c coming from the cervix. A one finger bimanual exam was performed. the cervix is normal in texture, no mass appreciated. The uterus is mobile and palpates small. There is a mass palpable anterior to the uterus, if feels mobile and oblong, it palpates a bit to the patient's right . RVE--is negative, no appreciable masses. Results & Data Vital Signs (Past 12 Hours) Vital Signs Temp Pulse Resp BP Pulse Ox 12/08/18 07:20 36.7 C 79 18 104/65 97 PG Care Time/CCT Total # of Minutes Spent Total Time Spent with Patient: Total time spent is greater than 50% in c oordination of care (as documented) at patient's floor/unit and/or counseling patient:
--- NOTE | 2018-12-08 15:09 | Hospitalist Progress Note ---
Date of Service December 08, 2018 Assessment & Plan (1) Recurrent UTI: DVT prophylaxis 88-year-old female with history of recurrent UTI, hypertension, vascular dementia, CKD 3 presenting with altered mental status. METABOLIC ENCEPHALOPATHY, SECONDARY TO UTI, RECURRENT Apparently has been [facility] with Bactrim and [facility] Patient daughter reports multiple episodes of UTI for this year, around 6 times She thinks main risk factor is patient's bowel and urinary incontinence and inadequate perineal hygiene in the [facility]itentiary CT abdomen/pelvis: Positive for nephrolithiasis Urine culture: Pending Obtaining records from penitentiary including recent urine cultures Currently on empiric ceftriaxone IV Mental status improved today compared to yesterday as per daughter Continue empiric ceftriaxone IV, follow-up cultures ID consulted Will need to coordinate care with penitentiary for more stringent perineal hygiene, daily bathing if possible ACUTE RENAL FAILURE, CKD STAGE III Likely prerenal etiology Improved with IV fluids Continue gentle IV fluids FLUID COLLECTION IN THE UTERUS, CERVIX, VAGINAL AREA ENGINEERING AND SCIENTIFIC PROGRAMMER consulted, awaiting recommendation LEFT OVARIAN CYST ENGINEERING AND SCIENTIFIC PROGRAMMER consulted, awaiting recommendation L1 COMPRESSION FRACTURE Seen on CAT scan of the abdomen pelvis: Interval development of a moderate L1 compression fracture demonstrating up to 50% loss of height. However, this is technically age indeterminate and favors an old fracture. Start Lidoderm patch, tramadol PRN, warm compress, PT OT evaluation Orthopedic spine consulted HYPERTENSION Stable at this morning Continue valsartan VASCULAR DEMENTIA Per patient's daughter, patient at baseline is awake and alert, follows commands but nonverbal Requires assistance with activities of daily living including feeding, dressing, bathing Able to ambulate to the bathroom with assistance Patient's mental status improving compared to yesterday Continue usual citalopram Continue to monitor DVT prophylaxis Heparin every 12 Disposition Patient is a resident of [facility] Will order PT/OT evaluation Will need to coordinate care with staff [facility] particularly with stringent perineal hygiene, daily bathing Case and plan of care discussed with patient's daughter Sakshi in detail and at length, at least 30 minutes time spent All questions answered She is comfortable, agreeable, understanding with the plan of care Subjective Follow-up for recurrent UTI, back pain Seen with patient's daughter Sakshi the bedside visiting Interview supplemented by her daughter due to dementia States her mother appears improved today, more alert, but mostly nonverbal at baseline Exam patient nods/shakes her head to questions Denies pain, shortness of breath, nausea Tolerated lunch well No signs of bleeding noted No other symptoms/signs noted by her daughter Review of Systems Review of Systems: All systems reviewed & are unremarkable except as noted in HPI & below Physical Exam Physical Exam: General-sleeping but easily arousable, not in distress, no accessory muscle use Nonverbal at baseline Head- atraumatic Eyes- PERRL, EOMI, anicteric ENT-oral mucosa Neck- supple, no JVD, no adenopathy, no thyromegaly; carotids +2/2, no bruits appreciated Lungs- clear to auscultation bilaterally, no rales/wheezes Heart- normal rate, regular rhythm; no murmur, no gallop, no rub appreciated Abdomen- normal bowel sounds, nondistended, soft, nontender, no masses or hepatosplenomegaly Extremities- no pretibial edema, no calf tenderness; peripheral pulses intact Neuro -sleeping but easily arousable, nonverbal, follows commands, no other signs of gross focal neurologic deficits Back-no edema/hematoma/open wound/tenderness Skin- warm & dry Results & Data Vital Signs (Past 12 Hours) Vital Signs Temp Pulse Resp BP Pulse Ox 12/08/18 07:20 36.7 C 79 18 104/65 97 Laboratory Results Laboratory Results - last 24 hr 12/07/18 12/08/18 12/08/18 14:45 07:11 07:11 WBC 4.23 L D RBC 2.90 L Hgb 9.3 L D Hct 28.4 L MCV 97.9 MCH 32.1 MCHC 32.7 RDW Std Deviation 46.6 H RDW Coeff of Campos 13.0 Plt Count 138 MPV 10.4 Sodium 146 H Potassium 3.9 Chloride 118 H Carbon Dioxide 23 Anion Gap 5.0 BUN 41 H Creatinine 1.16 D Est Cr Clr Drug Dosing 26.0 Est GFR ( Amer) 48.3 Est GFR (Non-Af Amer) 41.7 BUN/Creatinine Ratio 35.3 H Glucose 99 Calcium 8.9 D Urine Color Yellow Urine Appearance Cloudy A Urine pH 5.0 Ur Specific [place] 1.020 Urine Protein Trace H Urine Glucose (UA) Negative Urine Ketones Negative Urine Blood Trace H Urine Nitrite Negative Urine Bilirubin Negative Urine Urobilinogen Negative Ur Leukocyte Esterase 2+ H Urine RBC 0-4 Urine WBC 5-10 H Ur Epithelial Cells >30 H Urine Bacteria 3+ H
[2018-12-08] MEDS: LIDOCAINE 5% 1 PATCH TD SCH (16:16)
[2018-12-08] MEDS: cefTRIAXone SODIUM 1,000 MG in DEXTROSE 5% 50 ML IV SCH (16:17)
[2018-12-08] MEDS: LACTOBACILLUS ACIDOPHILUS (FLORANEX) TAB PO SCH ×2 (18:00→21:37)
--- NOTE | 2018-12-08 19:32 | Ultrasound Report ---
PELVIC ULTRASOUND CLINICAL HISTORY: Ovarian cyst. Abnormal CT scan. COMPARISON STUDY: CT of the abdomen and pelvis December 07, 2018. TECHNIQUE: Transabdominal sonography of the pelvis was performed. Transvaginal imaging was deferred in this patient. FINDINGS: Exam is compromised given lack of transvaginal imaging. The uterus measures 6.3 x 2.5 x 4 c m. The endometrium measures approximately 5 mm in thickness. The right ovary was not visualized. The left ovary measures 6.8 x 4.3 x 4.6 cm and contains a 5.4 cm cystic lesion with a single slightly thi ckened septation which contains color flow. There is no free fluid. IMPRESSION: 1. 5.4 cm cystic left ovarian lesion which contains a single slightly thickened septation. Although n ot highly suspicious, this lesion is indeterminate and abnormal in a postmenopausal patient. 2. Borderline thickened endometrium. 3. Nonvisualization of the right ovary. Electronically signed by: Craig Jacinto M.D. 12/08/2018 7:31 PM
[2018-12-09] MEDS: SODIUM CHLORIDE 0.9% 1000ML 1,000 ML IV SCH ×2 (05:20→21:25)
[2018-12-09] MEDS: ACETAMINOPHEN 500 MG TAB PO SCH ×3 (06:24→21:32)
[2018-12-09 07:06] LABS: BUN Creatinine Ratio 24.1 (10-20); Creatinine Clr Calc Pharmacy 30.2 ml/min; Est GFR (African American) 57.8; Est GFR (Non-African American) 49.9; Potassium 3.6 mmol/L (3.5-5.1)
[2018-12-09 07:09] LABS: Hematocrit (blood only) 29.4 % (37-47); Hemoglobin 9.9 g/dL (12.0-16.0); Mean Corpuscular Hemoglobin 33.1 pg (25-34); Mean Corpuscular Hgb Conc 33.7 g/dL (32-36); Mean Corpuscular Volume 98.3 fL (80-100); Mean Platelet Volume 11.1 fL (7.4-10.4); Platelet Count 136 K/uL (130-400); RDW Standard Deviation 46.4 fL (36.4-46.3); Red Blood Count 2.99 M/uL (4.2-5.4); White Blood Count 4.34 K/uL (4.8-10.8)
--- NOTE | 2018-12-09 07:23 | Gynecologic Progress Note ---
Date of Service December 09, 2018 Assessment & Plan (1) Vaginal discharge: Given the lining of the uterus is thin and unchanged from a year ago. Suspect the d/c is NOT related to a malignant process in the uterus and would NOT recommend endometrial biopsy, unless she has vaginal bleeding. Will f/u on vaginal culture. Will call Sakshi, patient's daughter, with results. [phone]. (2) Ovarian cyst: Cyst on the left ovary is stable and essentially unchanged from a year ago. Therefore, would not recommend any intervention for this as it is likely benign. The risk of surgery is high for this patient. will f/u on ca-125. Subjective Ultrasound reviewed. Limited by TAUS. The endometrium is thin at 5mm and no fluid noted. Stable 5.4cm mostly simple cyst with a thick septation. NO other concerning signs for cancer. Results & Data Vital Signs (Past 12 Hours) Vital Signs Temp Pulse Resp BP BP Pulse Ox 12/09/18 07:17 36.8 C 71 16 132/66 94 12/08/18 23:44 36.8 C 80 18 160/81 H 94 PG Care Time/CCT Total # of Minutes Spent Total Time Spent with Patient: Total time spent is greater than 50% in coordination of care (as documented) at patient's floor/unit and/or counseling patient:
[2018-12-09] MEDS: VALSARTAN 80 MG TAB PO SCH (08:23)
[2018-12-09] MEDS: LIDOCAINE 5% 1 PATCH TD SCH (08:23)
[2018-12-09] MEDS: CITALOPRAM 20 MG TAB PO SCH (08:24)
[2018-12-09] MEDS: HEPARIN SOD 5,000 UNIT/0.5 ML VIAL SQ SCH ×2 (08:25→20:30)
[2018-12-09] MEDS: LACTOBACILLUS ACIDOPHILUS (FLORANEX) TAB PO SCH ×4 (08:25→20:29)
[2018-12-09] MEDS: PANTOprazole 40 MG TAB PO SCH (08:25)
[2018-12-09 10:05] LABS: Ferritin 286.2 ng/ml (8-388)
--- NOTE | 2018-12-09 10:48 | Infectious Disease Consult ---
Date of Consultation December 09, 2018 Assessment & Plan (1) Recurrent UTI: no clear evidence of uti, suspect contamination due to increased ep cells and > organisms on culture. would suggest short course of emperic rocephin, 3 days. afebrile and hemodynamically stable. no additional ID recs at this time. History of Present Illness Attending Physician: Santos Tapia MD pt admitted with lethargy ongoing over past 2 weeks at snf. UA 5-10 wbc >30 ep cells and culture contaminant. on CTX, tolerating well. afebrile since admission. creat 1.1 wbc normal. 12/[address] showed ovarian cyst - saw ACUTE CARE REGISTERED NURSE no indication for additioanl workup at this time, vaginal discharge noted, culture done and is pending. CXR negative. pt is lethargic and does not answer questions on my exam. Allergies Allergy/AdvReac Type Severity Reaction Status Date / Time Fish Containing Products Allergy Unknown "SEAFOOD Verified 12/07/18 14:16 ALLERGY" ; RXN = "SWELLING" iodine Allergy Unknown UNKNOWN Verified 12/07/18 14:16 shellfish derived Allergy Unknown "SWELLING" Verified 12/07/18 14:16 WITH "SEAFOOD" Home Medications Home Medications Medication Instructions Recorded Confirmed Type alendronate 70 mg PO WK #0 tab 08/16/17 12/07/18 History omeprazole 20 mg PO DAILY #0 cap 08/16/17 12/07/18 History valsartan 160 mg PO DAILY #0 tab 08/16/17 12/07/18 History zinc [Chelated Zinc] 50 mg PO DAILY #0 08/16/17 12/07/18 History citalopram 20 mg tablet 20 mg PO DAILY #7 tab 10/11/18 12/07/18 Rx cranberry 500 mg PO DAILY 12/07/18 12/07/18 History ibuprofen [IBU] 600 mg PO Q6 PRN 12/07/18 12/07/18 History nitrofurantoin monohyd/m-cryst 100 mg PO BID 12/07/18 12/07/18 History Patient History Medical History HTN (hypertension) (Chronic) Compression fracture of L1 vertebra (Acute) Mood disorder (Chronic) Vascular dementia (Chronic) Nephrolithiasis Surgical History H/O lithotripsy (Chronic) History of hip replacement (Chronic) H/O section S/P tonsillectomy and adenoidectomy Family History Other Family history non-contributory Social History Preferred Language: Cymraes Communication Ability: Impaired Chair Mender Required: No Beliefs That Will Affect Care: None Current Living Situation: Personal Care Facility Current Living Situation Comment: [facility] Other Information That Helps Us Care for You: No Feels Safe at Home: Yes Smoking Status: Never smoker Hx Alcohol Use: No Hx Substance Use: No Review of Systems Review of Systems: Unobtainable due to cognitive status Physical Exam Constitutional: WD/WN, vitals as above Eyes: PERRL, conjunctivae normal, anicteric sclerae ENMT: external ear and nose normal, oropharynx normal Neck: normal visual inspection Respiratory: normal respiratory effort, lungs clear to auscultation Auscultation: + diminished lung sounds Cardiovascular: RRR, no murmur, no edema Gastrointestinal (Abdomen): Inspection/Auscultation: abdomen normal to inspection; abdomen not distended Percussion/Palpation: abdomen soft; abdomen nontender, no guarding and abdomen not rigid Musculoskeletal: Head/Neck/Chest: + head abnormal to inspection, normocephalic and head atraumatic Skin: no rashes, warm and dry Psychiatric: lethargic Results & Data Vital Signs (Past 12 Hours) Vital Signs Temp Pulse Resp BP BP Pulse Ox 12/09/18 07:17 36.8 C 71 16 132/66 94 12/08/18 23:44 36.8 C 80 18 160/81 H 94 Laboratory Results Microbiology 12/08/18 17:50 Vaginal Gram Stain - Final PG Care Time/CCT Total # of Minutes Spent Total Time Spent with Patient: Total time spent is greater than 50% in coordination of care (as documented) at patient's floor/unit and/or counseling patient:
[2018-12-09] MEDS: cefTRIAXone SODIUM 1,000 MG in DEXTROSE 5% 50 ML IV SCH (16:28)
--- NOTE | 2018-12-09 18:23 | Hospitalist Progress Note ---
Date of Service December 09, 2018 Assessment & Plan (1) Recurrent UTI: 88-year-old female with history of recurrent UTI, hypertension, vascular dementia, CKD 3 presenting with altered mental status. METABOLIC ENCEPHALOPATHY, SECONDARY TO UTI, RECURRENT Apparently has been treated with Bactrim and Macrobid while at the alf Patient daughter reports multiple episodes of UTI for this year, around 6 times She thinks main risk factor is patient's bowel and urinary incontinence and i nadequate perineal hygiene in the alf CT abdomen/pelvis: Positive for nephrolithiasis Urine culture: No growth so far Continue ceftriaxone day number 3 out of 3 Mental status improving ID consulted Will need to coordinate care with alf for more stringent perineal hygiene, daily bathing if possible ACUTE RENAL FAILURE, CKD STAGE III Likely prerenal etiology Improved with IV fluids Continue gentle IV fluids FLUID COLLECTION IN THE UTERUS, CERVIX, VAGINAL AREA PIANO CASE MAKER consulted Cultures of vaginal discharge taken, results pending LEFT OVARIAN CYST PIANO CASE MAKER consulted No further work-up at this time L1 COMPRESSION FRACTURE Seen on CAT scan of the abdomen pelvis: Interval development of a moderate L1 compression fracture demonstrating up to 50% loss of height. However, this is technically age indeterminate and favors an old fracture. Lidoderm patch, tramadol PRN, warm compress, PT OT evaluation Orthopedic spine consulted CT lumbar spine without contrast ordered HYPERTENSION Stable Continue valsartan VASCULAR DEMENTIA Per patient's daughter, patient at baseline is awake and alert, follows commands but nonverbal Requires assistance with activities of daily living including feeding, dressing, bathing Able to ambulate to the bathroom with assistance Patient's mental status improving Continue usual citalopram Continue to monitor, continue PT OT DVT prophylaxis Heparin every 12 hours Disposition Patient is a resident of [facility] PT/OT evaluation Will need to coordinate care with staff [facility] particularly with stringent perineal hygiene, daily bathing Case and plan of care discussed with patient's daughter Sakshi in detail and at length, over the phone All questions answered She is comfortable, agreeable, understanding with the plan of care Subjective ff up for UTI, back pain seen resting in bed, comfortable, sleeping but easily awakened by verbal stimuli responds by nodding or shaking her head Feels okay today, no active pain on my exam Tolerating diet Participating to some degree with physical therapy no other signs/symptoms Review of Systems Review of Systems: All systems reviewed & are unremarkable except as noted in HPI & below Physical Exam Physical Exam: General- not in distress, no accessory muscle use Eyes- anicteric Neck- no JVD Lungs- clear breath sounds bilaterally, no crackles or wheezes Heart- normal rate, regular rhythm; no murmurs Abdomen- normal bowel sounds, nondistended, soft, nontender Extremities- no pretibial edema, no calf tenderness Neuro- alert, nonverbal, follows simple commands; no other new gross focal neur ologic deficits Skin- warm & dry Results & Data Vital Signs (Past 12 Hours) Vital Signs Temp Pulse Resp BP Pulse Ox 12/09/18 15:30 36.7 C 82 18 127/72 96 12/09/18 07:17 36.8 C 71 16 132/66 94
--- NOTE | 2018-12-09 18:41 | CT Scan Report ---
CT SCAN OF THE LUMBAR SPINE WITHOUT IV CONTRAST CLINICAL HISTORY: Lumbar spinal compression fracture. COMPARISON STUDY: Abdominal CT scans dated 12/07/2018 and 08/17/2017. TECHNIQUE: CT scan of the lumbar spine is performed from the lower thoracic spine to the sacrum. Imag es are reviewed in the axial, sagittal, and coronal planes. IV contrast was not administered for this examination. A dose lowering technique was utilized adhering to the principles of ALARA. CT DOSE: 323.20 mGycm FINDINGS: The skeletal structures are osteopenic. There is a moderate compression deformity of L1. Th is is unchanged from 12/07/2018 but the degree of collapse has increased from 08/17/2017. Vertebral body height is otherwise maintained throughout the lumbar spine. There is minimal anterolisthesis at L3-L 4. Alignment is otherwise preserved. The transverse and spinous processes are intact. There is no spo ndylolysis. No lytic or blastic lesion is seen. There is trabecular thickening and heterogeneity note d within the body of L1 which includes the posterior elements. Additionally, there are similar-appear ing changes throughout the partially imaged right ilium, and this suggests Paget's disease of bone. T here is mild disc space narrowing seen at T12-L1. The remaining disc spaces are preserved. There is n o evidence of large disc herniation or high-grade central canal stenosis by CT. Small posterior disc osteophyte complexes are seen at several levels. Mild facet arthropathy is noted in the lower lumbar region. The visualized sacrum and bony pelvis appear intact. Degenerative change is noted in the sacr oiliac joints. There is fatty atrophy of the paraspinous musculature. Advanced atherosclerotic calcif ication is noted in the abdominal aorta. There is no retroperitoneal lymphadenopathy. The psoas muscu lature is normal and symmetric. IMPRESSION: 1. There is a moderate compression deformity of L1. This is unchanged from 12/07/2018; however, the de gree of collapse has increased from the 08/17/2017 examination. 2. Vertebral body height is otherwise maintained throughout the lumbar spine. 3. 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 4. Osteopenia and mild spondylotic change as above. Dictated: 12/09/2018 4:58 PM Transcribed: 12/09/2018 6:25 PM Jeanna [id number] CHASITY_Isaías Electronically signed by: Donal Crews M.D. 12/09/2018 6:40 PM
[2018-12-10] MEDS: ACETAMINOPHEN 500 MG TAB PO SCH ×3 (05:20→21:29)
[2018-12-10] MEDS: PANTOprazole 40 MG TAB PO SCH (08:30)
[2018-12-10] MEDS: VALSARTAN 80 MG TAB PO SCH (08:30)
[2018-12-10] MEDS: LACTOBACILLUS ACIDOPHILUS (FLORANEX) TAB PO SCH ×4 (08:30→20:07)
[2018-12-10] MEDS: LIDOCAINE 5% 1 PATCH TD SCH (08:31)
[2018-12-10] MEDS: CITALOPRAM 20 MG TAB PO SCH (08:31)
[2018-12-10] MEDS: HEPARIN SOD 5,000 UNIT/0.5 ML VIAL SQ SCH ×2 (08:31→20:07)
--- NOTE | 2018-12-10 09:11 | Consultation ---
Date of Consultation December 10, 2018 Assessment & Plan (1) Compression fracture of L1 vertebra: This appears to be a subacute compression fracture. Again, I am unsure of how much pain she is in because of this. Nonetheless, treatment is conservative in light of her age and multiple medical comorbidities. Bracing in the form of TLSO brace is certainly an option but again I feel that this would even be more challenging for her and her ongoing personal hygiene issues. We therefore just treat this conservatively in the form of pain control. Activity is as tolerated. Would not proceed with aggressive surgical intervention. Supervising Physician Co-Signing Physician Notes Dr. Kurt Dias History of Present Illness This is an 88-year-old female that we are asked to see in consultation regards to an L1 compression fracture. I was unable to get any type of history today from the patient. It appears she has vascular dementia and at baseline follows commands but is nonverbal. She responded to me calling her name but then promptly fell asleep. No family was available to provide further details. It appears from hospitalist notes that she is a resident of a [facility]. She is here with frequent UTIs with subsequent metabolic encephalopathy. Attending Physician: Santos Tapia MD Allergies Allergy/AdvReac Type Severity Reaction Status Date / Time Fish Containing Products Allergy Unknown "SEAFOOD Verified 12/07/18 14:16 ALLERGY" ; RXN = "SWELLING" iodine Allergy Unknown UNKNOWN Verified 12/07/18 14:16 shellfish derived Allergy Unknown "SWELLING" Verified 12/07/18 14:16 WITH "SEAFOOD" Home Medications Home Medications Medication Instructions Recorded Confirmed Type alendronate 70 mg PO WK #0 tab 08/16/17 12/07/18 History omeprazole 20 mg PO DAILY #0 cap 08/16/17 12/07/18 History valsartan 160 mg PO DAILY #0 tab 08/16/17 12/07/18 History zinc [Chelated Zinc] 50 mg PO DAILY #0 08/16/17 12/07/18 History citalopram 20 mg tablet 20 mg PO DAILY #7 tab 10/11/18 12/07/18 Rx cranberry 500 mg PO DAILY 12/07/18 12/07/18 History ibuprofen [IBU] 600 mg PO Q6 PRN 12/07/18 12/07/18 History nitrofurantoin monohyd/m-cryst 100 mg PO BID 12/07/18 12/07/18 History Patient History Medical History HTN (hypertension) (Chronic) Compression fracture of L1 vertebra (Acute) Mood disorder (Chronic) Vascular dementia (Chronic) Nephrolithiasis Surgical History H/O lithotripsy (Chronic) History of hip replacement (Chronic) H/O section S/P tonsillectomy and adenoidectomy Family History Other Family history non-contributory Social History Preferred Language: [place] Communication Ability: Impaired Pattern Chain Builder Required: No Beliefs That Will Affect Care: None Current Living Situation: Personal Care Facility Current Living Situation Comment: [facility] Other Information That Helps Us Care for You: No Feels Safe at Home: Yes Smoking Status: Never smoker Hx Alcohol Use: No Hx Substance Use: No Review of Systems Review of Systems: All systems reviewed & are unremarkable except as noted in HPI & below Physical Exam Physical Exam: Resting comfortably. Responds to her name but again probably falls asleep. No further physical exam was performed due to the above. Results & Data Vital Signs (Past 12 Hours) Vital Signs Temp Pulse Resp BP Pulse Ox 12/10/18 07:12 36.7 C 68 20 148/83 H 96 12/09/18 23:14 36.3 C L 80 19 154/[address] Scan Report Patient: Guillermo MUSE Date: 12/08/18 MR#: [id number]: [id number] [facility] Acct ID:[id number]: [facility] Date: 1930City Zip: [place] [address] Age: 88Location: 4W Sex: F Room/Bed: [facility] Att Phy: Santos Tapia MDDiagnosis: UTI,PAT Tessa Phy: BARTOLOMEFORMERLY [facility] COUNTYService Date: 12/09/18 Fam Phy: Interpreting Phy: Donal Crews MD Admit Phy: Jelani Lofton MD Ordering Phy: Santos Tapia MD cc: ~ CT SCAN OF THE LUMBAR SPINE WITHOUT IV CONTRAST CLINICAL HISTORY: Lumbar spinal compression fracture. COMPARISON STUDY: Abdominal CT scans dated 12/07/2018 and 08/17/2017. TECHNIQUE: CT scan of the lumbar spine is performed from the lower thoracic spine to the sacrum. Images are reviewed in the axial, sagittal, and coronal planes. IV contrast was not administered for this examination. A dose lowering technique was utilized adhering to the principles of ALARA. CT DOSE: 323.20 mGycm FINDINGS: The skeletal structures are osteopenic. There is a moderate compression deformity of L1. This is unchanged from 12/07/2018 but the degree of collapse has increased from 08/17/2017. Vertebral body height is otherwise maintained throughout the lumbar spine. There is minimal anterolisthesis at L3- L4. Alignment is otherwise preserved. The transverse and spinous processes are intact. There is no spondylolysis. No lytic or blastic lesion is seen. There is trabecular thickening and heterogeneity noted within the body of L1 which includes the posterior elements. Additionally, there are similar-appearing changes throughout the partially imaged right ilium, and this suggests Paget's disease of bone. There is mild disc space narrowing seen at T12-L1. The remaining disc spaces are preserved. There is no evidence of large disc herniation or high-grade central canal stenosis by CT. Small posterior disc osteophyte complexes are seen at several levels. Mild facet arthropathy is noted in the lower lumbar region. The visualized sacrum and bony pelvis appear intact. Degenerative change is noted in the sacroiliac joints. There is fatty atrophy of the paraspinous musculature. Advanced atherosclerotic calcification is noted in the abdominal aorta. There is no retroperitoneal lymphadenopathy. The psoas musculature is normal and symmetric. IMPRESSION: 1. There is a moderate compression deformity of L1. This is unchanged from 12/07/2018; however, the degree of collapse has increased from the 08/17/2017 examination. 2. Vertebral body height is otherwise maintained throughout the lumbar spine. 3. 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 4. Osteopenia and mild spondylotic change as above. Dictated: 12/09/2018 4:58 PM Transcribed: 12/09/2018 6:25 PM Jeanna [id number] CHASITY_Isaías Electronically signed by: Donal Crews M.D. 12/09/2018 6:40 PM
[2018-12-10 09:24] LABS: BUN Creatinine Ratio 17.1 (10-20); Calcium 8.9 mg/dl (8.5-10.1); Creatinine Clr Calc Pharmacy 36.8 ml/min; Est GFR (African American) 73.5; Est GFR (Non-African American) 63.4; Potassium 3.3 mmol/L (3.5-5.1)
[2018-12-10 09:55] LABS: Folate (Folic Acid) 4.92 ng/ml (>5.38)
[2018-12-10] MEDS ORDERED: POTASSIUM CHLORIDE 10 MEQ TABCR PO STA (10:20)
[2018-12-10 11:39] LABS: BUN Creatinine Ratio 15.4 (10-20); Calcium 8.6 mg/dl (8.5-10.1); Creatinine Clr Calc Pharmacy 37.2 ml/min; Est GFR (African American) 74.6; Est GFR (Non-African American) 64.4; Potassium 3.5 mmol/L (3.5-5.1)
[2018-12-10] MEDS: FOLIC ACID 1 MG TAB PO SCH (12:22)
[2018-12-10] MEDS: SODIUM CHLORIDE 0.9% 1000ML 1,000 ML IV SCH (14:14)
--- NOTE | 2018-12-10 14:50 | Hospitalist Progress Note ---
Date of Service December 10, 2018 Assessment & Plan (1) Recurrent UTI: 88-year-old female with history of recurrent UTI, hypertension, vascular dementia, CKD 3 presenting with altered mental status. METABOLIC ENCEPHALOPATHY, SECONDARY TO UTI, RECURRENT Apparently has been treated with Bactrim and Macrobid while at the residential Patient daughter reports multiple episodes of UTI for this year, around 6 times She thinks main risk factor is patient's bowel and urinary incontinence and i nadequate perineal hygiene in the residential CT abdomen/pelvis: Positive for nephrolithiasis Urine culture: No growth so far received ceftriaxone IV x 3 days Mental status improving daily ID consulted Will need to coordinate care with residential for more stringent perineal hygiene, daily bathing if possible ACUTE RENAL FAILURE, CKD STAGE III Likely prerenal etiology Improved with IV fluids x 3 days d/c IV fluids for now FLUID COLLECTION IN THE UTERUS, CERVIX, VAGINAL AREA SHAPE CARVER consulted Cultures of vaginal discharge taken, results pending LEFT OVARIAN CYST SHAPE CARVER consulted No further work-up at this time L1 COMPRESSION FRACTURE Seen on CAT scan of the abdomen pelvis: Interval development of a moderate L1 compression fracture demonstrating up to 50% loss of height. However, this is technically age indeterminate and favors an old fracture. Lidoderm patch, tramadol PRN, warm compress, PT OT evaluation Orthopedic spine consulted- brace not recommended at this time CT lumbar spine without contrast ordered HYPERTENSION Stable Continue valsartan VASCULAR DEMENTIA Per patient's daughter, patient at baseline is awake and alert, follows commands but nonverbal Requires assistance with activities of daily living including feeding, dressing, bathing Able to ambulate to the bathroom with assistance Patient's mental status improving Continue usual citalopram Continue to monitor, continue PT OT DVT prophylaxis Heparin every 12 hours Disposition Patient is a resident of [facility] PT/OT evaluation Will need to coordinate care with staff [facility] particularly with stringent perineal hygiene, daily bathing Case and plan of care discussed with patient's daughter Sakshi in detail and at length, over the phone All questions answered She is comfortable, agreeable, understanding with the plan of care Subjective ff up for UTI, etc seen sitting up in bed, comfortable non verbal at baseline nods/shakes head to answer questions denies abdominal pain, back pain eating fine as per medical staff manager no other signs/symptoms Review of Systems Review of Systems: All systems reviewed & are unremarkable except as noted in HPI & below Physical Exam Physical Exam: General- alert, not in distress, comfortable Eyes- anicteric Neck- no JVD Lungs- clear breath sounds, no rales/wheezing bilaterally Heart- normal rate, regular rhythm; no murmurs Abdomen- normal bowel sounds, nondistended, soft, nontender Extremities- no pretibial edema, no calf tenderness Neuro- alert; no gross focal neurologic deficits Skin- warm & dry Results & Data Vital Signs (Past 12 Hours) Vital Signs Temp Pulse Resp BP Pulse Ox 12/10/18 07:12 36.7 C 68 20 148/83 H 96 Laboratory Results Laboratory Results - last 24 hr 12/10/18 12/10/18 12/10/18 05:58 06:02 11:03 Sodium 139 138 Potassium 3.3 L 3.5 Chloride 110 H 108 H Carbon Dioxide 25 25 Anion Gap 4.0 5.0 BUN 14 13 Creatinine 0.82 0.81 Est Cr Clr Drug Dosing 36.8 37.2 Est GFR ( Amer) 73.5 74.6 Est GFR (Non-Af Amer) 63.4 64.4 BUN/Creatinine Ratio 17.1 15.4 Glucose 89 95 Calcium 8.9 8.6 Vitamin B12 1132 H Folate 4.92 L
[2018-12-11] MEDS: ACETAMINOPHEN 500 MG TAB PO SCH ×3 (05:47→21:07)
[2018-12-11] MEDS: LIDOCAINE 5% 1 PATCH TD SCH (08:55)
[2018-12-11] MEDS: LACTOBACILLUS ACIDOPHILUS (FLORANEX) TAB PO SCH ×4 (08:55→21:00)
[2018-12-11] MEDS: PANTOprazole 40 MG TAB PO SCH (08:55)
[2018-12-11] MEDS: VALSARTAN 80 MG TAB PO SCH (08:55)
[2018-12-11] MEDS: HEPARIN SOD 5,000 UNIT/0.5 ML VIAL SQ SCH ×2 (08:56→21:00)
[2018-12-11] MEDS: CITALOPRAM 20 MG TAB PO SCH (08:57)
[2018-12-11] MEDS: FOLIC ACID 1 MG TAB PO SCH (08:57)
--- NOTE | 2018-12-11 14:56 | Hospitalist Progress Note ---
Date of Service December 11, 2018 Assessment & Plan (1) Recurrent UTI: 88-year-old female with history of recurrent UTI, hypertension, vascular dementia, CKD 3 presenting with altered mental status. METABOLIC ENCEPHALOPATHY, SECONDARY TO UTI, RECURRENT Apparently has been treated with Bactrim and Macrobid while at the assisted Patient daughter reports multiple episodes of UTI for this year, around 6 times She thinks main risk factor is patient's bowel and urinary incontinence and i nadequate perineal hygiene in the assisted CT abdomen/pelvis: Positive for nephrolithiasis Urine culture: No growth so far received ceftriaxone IV x 3 days Mental status improved ID consulted Will need to coordinate care with assisted for more stringent perineal hygiene, daily bathing if possible ACUTE RENAL FAILURE, CKD STAGE III Likely prerenal etiology Improved with IV fluids x 3 days IV fluids disocntinued FLUID COLLECTION IN THE UTERUS, CERVIX, VAGINAL AREA SOFTWARE TRAINER consulted Cultures of vaginal discharge taken, Negative LEFT OVARIAN CYST Director Of Training consulted No further work-up at this time L1 COMPRESSION FRACTURE Seen on CAT scan of the abdomen pelvis: Interval development of a moderate L1 compression fracture demonstrating up to 50% loss of height. However, this is technically age indeterminate and favors an old fracture. Lidoderm patch, tramadol PRN, warm compress, PT OT evaluation Orthopedic spine consulted- brace not recommended at this time CT lumbar spine without contrast ordered HYPERTENSION Stable Continue valsartan VASCULAR DEMENTIA Per patient's daughter, patient at baseline is awake and alert, follows commands but nonverbal Requires assistance with activities of daily living including feeding, dressing, bathing Able to ambulate to the bathroom with assistance Patient's mental status improving Continue usual citalopram Continue to monitor, continue PT OT DVT prophylaxis Heparin every 12 hours Disposition Patient is a resident of [facility] PT/OT evaluation Will need to coordinate care with staff [facility] particularly with stringent perineal hygiene, daily bathing Case and plan of care discussed with patient's daughter Sakshi in detail and at length, over the phone All questions answered She is comfortable, agreeable, understanding with the plan of care Subjective ff up for UTI, etc. seen resting in bed, comfortable, not in distress smiling answered "no" if she is having any pain nodded when asked if she feels fine no other signs/symptoms Review of Systems Review of Systems: All systems reviewed & are unremarkable except as noted in HPI & below Physical Exam Physical Exam: General- alert, comfortable Eyes- anicteric Neck- no JVD Lungs- clear breath sounds , no crackles bilaterally Heart- normal rate, regular rhythm; no murmurs Abdomen- normal bowel sounds, nondistended, soft, nontender Extremities- no pretibial edema, no calf tenderness Neuro- alert, no new gross focal neurologic deficits Skin- warm & dry Results & Data Vital Signs (Past 12 Hours) Vital Signs Temp Pulse Resp BP Pulse Ox 12/11/18 07:02 36.5 C 76 20 153/82 H 98
[2018-12-12] MEDS: ACETAMINOPHEN 500 MG TAB PO SCH ×2 (05:39→13:45)
[2018-12-12 06:35] LABS: Hematocrit (blood only) 29.7 % (37-47); Hemoglobin 10.2 g/dL (12.0-16.0); Mean Corpuscular Hemoglobin 32.1 pg (25-34); Mean Corpuscular Hgb Conc 34.3 g/dL (32-36); Mean Corpuscular Volume 93.4 fL (80-100); Mean Platelet Volume 10.9 fL (7.4-10.4); Platelet Count 143 K/uL (130-400); RDW Coefficient of Variation 12.4 % (11.5-14.5); RDW Standard Deviation 42.4 fL (36.4-46.3); Red Blood Count 3.18 M/uL (4.2-5.4); White Blood Count 4.03 K/uL (4.8-10.8)
[2018-12-12] MEDS: LACTOBACILLUS ACIDOPHILUS (FLORANEX) TAB PO SCH ×2 (08:16→12:30)
[2018-12-12] MEDS: FOLIC ACID 1 MG TAB PO SCH (08:18)
[2018-12-12] MEDS: CITALOPRAM 20 MG TAB PO SCH (08:18)
[2018-12-12] MEDS: PANTOprazole 40 MG TAB PO SCH (08:18)
[2018-12-12] MEDS: VALSARTAN 80 MG TAB PO SCH (08:18)
[2018-12-12] MEDS: LIDOCAINE 5% 1 PATCH TD SCH (08:19)
[2018-12-12] MEDS: HEPARIN SOD 5,000 UNIT/0.5 ML VIAL SQ SCH (08:19)
--- NOTE | 2018-12-12 09:19 | Hospitalist Progress Note ---
Date of Service December 12, 2018 Assessment & Plan (1) Recurrent UTI: 88-year-old female with history of recurrent UTI, hypertension, vascular dementia, CKD 3 presenting with altered mental status. METABOLIC ENCEPHALOPATHY, SECONDARY TO UTI, RECURRENT Apparently has been treated with Bactrim and Macrobid while at the long term Patient daughter reports multiple episodes of UTI for this year, around 6 times She thinks main risk factor is patient's bowel and urinary incontinence and i nadequate perineal hygiene in the long term CT abdomen/pelvis: Positive for nephrolithiasis Urine culture: No growth so far ID consulted-recommend 3-day course of IV ceftriaxone which patient has already finished Mental status back to baseline, appetite is good, afebrile It is recommended that patient be provided with stringent perineal hygiene, daily bathing, urinalysis every 2 weeks, close monitoring for signs of UTI ACUTE RENAL FAILURE, CKD STAGE III Likely prerenal etiology, dehydration Improved with IV fluids x 3 days Please ensure adequate daily fluid intake, water and juice should be encouraged every shift FLUID COLLECTION IN THE UTERUS, CERVIX, VAGINAL AREA Raw Juice Weigher consulted Dr. Mckenna "Given the lining of the uterus is thin and unchanged from a year ago. Suspect the d/c is NOT related to a malignant process in the uterus and would NOT recommend endometrial biopsy, unless she has vaginal bleeding. " Vaginal culture: Negative LEFT OVARIAN CYST Raw Juice Weigher consulted No further work-up at this time "Cyst on the left ovary is stable and essentially unchanged from a year ago. Therefore, would not recommend any intervention for this as it is likely benign. The risk of surgery is high for this patient. will f/u on ca-125." L1 COMPRESSION FRACTURE CT lumbar spine:. There is a moderate compression deformity of L1. This is unchanged from 12/07/2018; however, the degree of collapse has increased from the 08/17/2017 examination. 2. Vertebral body height is otherwise maintained throughout the lumbar spine. 3. 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 4. Osteopenia and mild spondylotic change as above. Lidoderm patch, tramadol PRN, warm compress, PT OT evaluation Orthopedic spine consulted- brace not recommended at this time, continue pain control, activity as tolerated, surgical intervention not recommended Continue alendronate HYPERTENSION Stable Continue valsartan VASCULAR DEMENTIA Per patient's daughter, patient at baseline is awake and alert, follows commands but nonverbal Requires assistance with activities of daily living including feeding, dressing, bathing Able to ambulate to the bathroom with assistance Patient's mental status back to baseline Continue usual citalopram ANEMIA Folate deficiency, folate level 4.9 Iron 111, ferritin 286, B12 1132 Started folic acid 1 mg daily CBC in 1 week by primary care physician, further work-up as an outpatient DVT prophylaxis Heparin every 12 hours Disposition Return to [facility], continue PT and OT services Subjective Follow-up for UTI, back pain Seen resting in bed, comfortable, not in distress Awake, alert, nods/shakes her head to respond Denies back pain, abdominal pain, shortness of breath As per nursing staff, patient had a good appetite for breakfast No other signs or symptoms noted today Review of Systems Review of Systems: All systems reviewed & are unremarkable except as noted in HPI & below Physical Exam Physical Exam: General-alert, follows simple commands, not in distress Eyes- anicteric Neck- no JVD Lungs- clear breath sounds, no crackles or wheezing bilaterally Heart- normal rate, regular rhythm; no murmurs Abdomen- normal bowel sounds, nondistended, soft, nontender Extremities- no pretibial edema, no calf tenderness Neuro- alert, no new gross focal neurologic deficits Skin- warm & dry Results & Data Vital Signs (Past 12 Hours) Vital Signs Temp Pulse Resp BP BP Pulse Ox 12/12/18 07:17 36.7 C 74 18 171/79 H 96 12/11/18 23:27 37.0 C 76 20 133/71 94 Laboratory Results Laboratory Results - last 24 hr 12/09/18 12/12/18 05:38 06:08 WBC 4.03 L RBC 3.18 L Hgb 10.2 L Hct 29.7 L MCV 93.4 MCH 32.1 MCHC 34.3 RDW Std Deviation 42.4 RDW Coeff of Campos 12.4 Plt Count 143 MPV 10.9 H CA 125 Antigen 7
--- NOTE | 2018-12-12 12:18 | Discharge Summary ---
Date of Service December 12, 2018 Admission HPI Per Admitting Provider This is an 88yo F [facility] resident with a PMH of vascular dementia, HTN, osteoporosis, recurrent UTIs and other medical problems listed below who presents with weakness and lethargy for the past 2 weeks. Has history of recurrent UTIs in the setting of incontinence and was recently diagnosed with one at her personal care facility. She completed course of Bactrim without improvement and has been taking Macrobid for the past 3 days, per daughter at bedside. History obtained from daughter due to patient's cognitive state. Patient vomited twice today prior to arrival. Has also seemed weaker and less aware than baseline, although is essentially non-verbal with advanced dementia. Has also been mentioning back pain, which is unusual for her. Unable to obtain full ROS 2/2 cognitive state. No documented fever. Admission Exam Per Admitting Provider General Appearance: WD/WN, vitals as above, elderly female resting comfortably. Alert and cooperative but non-verbal 2/2 dementia Head: normocephalic, atraumatic Eyes: normal inspection, PERRL, conjunctivae normal, anicteric sclerae ENT: hard of hearing, external ear and nose normal, oropharynx normal Neck: trachea midline, no thyromegaly normal visual inspection Respiratory: normal respiratory effort, lungs clear to auscultation, no wheeze, rales, rhonchi. Normal insp/exp effort, no accessory muscle use Cardiovascular: regular rate, rhythm, no murmur appreciated, normal peripheral pulses. Vessels: no JVD or carotid bruit Chest: normal inspection of chest Abdomen/GI: normal bowel sounds, soft, nontender, no hepatosplenomegaly Extremities/Musculoskelatal: No TTP along thoracic or lumbar spine. No deformities visualized. No cyanosis or clubbing Neurologic: PERRL, EOMI, accommodation nl, no face palsy, no dysarthria CN's II-XI intact bilaterally and moves all extremities Psychiatric: Alert, difficult to assess orientation due to non-verbal state, follows commands, euthymic affect Skin: no rashes, normal color, warm/dry Principal Diagnosis Dehydration, acute kidney injury, urinary tract infection Discharge Exam General-alert, follows simple commands, not in distress Eyes- anicteric Neck- no JVD Lungs- clear breath sounds, no crackles or wheezing bilaterally Heart- normal rate, regular rhythm; no murmurs Abdomen- normal bowel sounds, nondistended, soft, nontender Extremities- no pretibial edema, no calf tenderness Neuro- alert, no new gross focal neurologic deficits Skin- warm & dry Discharge Data Allergies Allergy/AdvReac Type Severity Reaction Status Date / Time Fish Containing Products Allergy Unknown "SEAFOOD Verified 12/07/18 14:16 ALLERGY" ; RXN = "SWELLING" iodine Allergy Unknown UNKNOWN Verified 12/07/18 14:16 shellfish derived Allergy Unknown "SWELLING" Verified 12/07/18 14:16 WITH "SEAFOOD" Consultations 12/07/18 17:45 ED Decision to Admit Stat 12/07/18 20:14 Consult Case Management - Discharge Planning Routine 12/08/18 08:00 Consult Gynecology Routine 12/08/18 13:35 Consult Infectious Diseases Routine Consult Orthopedic Surgery Routine Ordered Studies 12/07/18 13:40 CT abd pelvis wo con Stat FINDINGS: Patchy densities at the lung bases favor mild dependent change. No pneumoperitoneum. No pneumatosis. The left total hip arthroplasty. Thickened trabeculae within the right hemipelvis and bilateral femurs. This favors Paget's disease. This remains unchanged. Moderate compression deformity at L1 demonstrating up to 50% loss of height which is new from the prior study. This is technically age indeterminate. However, there is no significant paravertebral edema to suggest an acute fracture. Stable hypodense hepatic and right renal lesions. No gallbladder wall thickening. The unenhanced spleen, adrenal glands, and pancreas are unremarkable. Bilateral nephrolithiasis. No hydronephrosis. No retroperitoneal lymphadenopathy. Mild bladder wall thickening. The lower uterine segment, cervix, and vagina are fluid-filled and distended. There is a small focus of gas within the vagina and endometrium. Mild thickening of the vaginal wall. A 6.5 cm stool ball within the rectum. Suboptimal evaluation for bowel pathology due to the lack of intravenous and oral contrast. However, there is no definite bowel wall thickening or obstruction. Normal appendix. Increase in size in the 6.2 cm septated left ovarian cyst. IMPRESSION: 1. The lower uterine segment, cervix, and vagina are fluid-filled and distended. There is a small focus of gas within the vagina and endometrium. Mild thickening of the vaginal wall. This is nonspecific but underlying infection cannot be excluded. Clinical correlation and pelvis exam recommended for further evaluation. 2. Interval development of a moderate L1 compression fracture demonstrating up to 50% loss of height. However, this is technically age indeterminate and favors an old fracture. 3. Increase in size in the 6.2 cm septated left ovarian cyst. This is considered pathologic in a postmenopausal female. 4. No bowel wall thickening or obstruction. 5. Normal appendix. 6. Bilateral nephrolithiasis. No hydronephrosis. CT head/brain wo con Stat Proportional ventricular and sulcal prominence, likely age-related parenchymal volume loss. No hemorrhage. Significant calcifications noted in the basal ganglia and cerebellar hemispheres. Periventricular and subcortical white matter hypoattenuation, nonspecific but likely indicative of chronic small vessel ischemic change. No acute territorial infarct. No mass effect or midline shift. No extra-axial fluid collection. Paranasal sinuses and mastoid air cells clear. Calvarium intact. IMPRESSION: 1. Chronic small vessel ischemic change. No acute intracranial abnormality. 12/08/18 18:10 US pelvic complete Routine IMPRESSION: 1. 5.4 cm cystic left ovarian lesion which contains a single slightly thickened septation. Although not highly suspicious, this lesion is indeterminate and abnormal in a postmenopausal patient. 2. Borderline thickened endometrium. 3. Nonvisualization of the right ovary. 12/09/18 16:28 CT lumbar spine wo con Routine CT SCAN OF THE LUMBAR SPINE WITHOUT IV CONTRAST CLINICAL HISTORY: Lumbar spinal compression fracture. COMPARISON STUDY: Abdominal CT scans dated 12/07/2018 and 08/17/2017. TECHNIQUE: CT scan of the lumbar spine is performed from the lower thoracic spine to the sacrum. Images are reviewed in the axial, sagittal, and coronal planes. IV contrast was not administered for this examination. A dose lowering technique was utilized adhering to the principles of ALARA. CT DOSE: 323.20 mGycm FINDINGS: The skeletal structures are osteopenic. There is a moderate compression deformity of L1. This is unchanged from 12/07/2018 but the degree of collapse has increased from 08/17/2017. Vertebral body height is otherwise maintained throughout the lumbar spine. There is minimal anterolisthesis at L3- L4. Alignment is otherwise preserved. The transverse and spinous processes are intact. There is no spondylolysis. No lytic or blastic lesion is seen. There is trabecular thickening and heterogeneity noted within the body of L1 which includes the posterior elements. Additionally, there are similar-appearing changes throughout the partially imaged right ilium, and this suggests Paget's disease of bone. There is mild disc space narrowing seen at T12-L1. The remaining disc spaces are preserved. There is no evidence of large disc herniati on or high-grade central canal stenosis by CT. Small posterior disc osteophyte complexes are seen at several levels. Mild facet arthropathy is noted in the lower lumbar region. The visualized sacrum and bony pelvis appear intact. Degenerative change is noted in the sacroiliac joints. There is fatty atrophy of the paraspinous musculature. Advanced atherosclerotic calcification is noted in the abdominal aorta. There is no retroperitoneal lymphadenopathy. The psoas musculature is normal and symmetric. IMPRESSION: 1. There is a moderate compression deformity of L1. This is unchanged from 12/07/2018; however, the degree of collapse has increased from the 08/17/2017 examination. 2. Vertebral body height is otherwise maintained throughout the lumbar spine. 3. 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 4. Osteopenia and mild spondylotic change as above. Hospital Course (1) Recurrent UTI: 88-year-old female with history of recurrent UTI, hypertension, vascular dementia, CKD 3 presenting with altered mental status. METABOLIC ENCEPHALOPATHY, SECONDARY TO UTI, RECURRENT Apparently has been treated with Bactrim and Macrobid while at the skilled nursing Patient daughter reports multiple episodes of UTI for this year, around 6 times She thinks main risk factor is patient's bowel and urinary incontinence and inadequate perineal hygiene in the skilled nursing CT abdomen/pelvis: Positive for nephrolithiasis Urine culture: No growth so far ID consulted-recommend 3-day course of IV ceftriaxone which patient has already finished Mental status back to baseline, appetite is good, afebrile It is recommended that patient be provided with stringent perineal hygiene, daily bathing, urinalysis every 2 weeks, close monitoring for signs of UTI ACUTE RENAL FAILURE, CKD STAGE III LIKELY PRERENAL ETIOLOGY, DEHYDRATION Improved with IV fluids x 3 days Please ensure adequate daily fluid intake, water and juice should be encouraged every shift FLUID COLLECTION IN THE UTERUS, CERVIX, VAGINAL AREA Hand Hardener consulted Dr. Mckenna "Given the lining of the uterus is thin and unchanged from a year ago. Suspect the d/c is NOT related to a malignant process in the uterus and would NOT recommend endometrial biopsy, unless she has vaginal bleeding. " Vaginal culture: Negative LEFT OVARIAN CYST Hand Hardener consulted No further work-up at this time "Cyst on the left ovary is stable and essentially unchanged from a year ago. Therefore, would not recommend any intervention for this as it is likely benign. The risk of surgery is high for this patient. will f/u on ca-125." L1 COMPRESSION FRACTURE CT lumbar spine:. There is a moderate compression deformity of L1. This is unchanged from 12/07/2018; however, the degree of collapse has increased from the 08/17/2017 examination. 2. Vertebral body height is otherwise maintained throughout the lumbar spine. 3. 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 4. Osteopenia and mild spondylotic change as above. Lidoderm patch, tramadol PRN, warm compress, PT OT evaluation Orthopedic spine consulted- brace not recommended at this time, continue pain control, activity as tolerated, surgical intervention not recommended Continue alendronate HYPERTENSION Stable Continue valsartan VASCULAR DEMENTIA Per patient's daughter, patient at baseline is awake and alert, follows commands but nonverbal Requires assistance with activities of daily living including feeding, dressing, bathing Able to ambulate to the bathroom with assistance Patient's mental status back to baseline Continue usual citalopram ANEMIA Folate deficiency, folate level 4.9 Iron 111, ferritin 286, B12 1132 Started folic acid 1 mg daily CBC in 1 week by primary care physician, further work-up as an outpatient DVT prophylaxis Heparin every 12 hours Disposition Return to [facility], continue PT and OT services Total Time Total Time Spent Total Time Spent (In Minutes): 50 minutes Discharge Plan Discharge Items Patient Disposition: Home - Self-Care Reason For Visit: UTI,PAT Discharge Diagnosis: DEHYDRATION, ACUTE KIDNEY INJURY, URINARY TRACT INFECTION Condition on Discharge: Good Activity: Resume your previous activity Activity Comment: Resume activity gradually as tolerated, continue PT and OT, fall precautions Non-emergency contact: Primary Care Provider Call non-emergency contact if: you have any medication questions, your symptoms worsen, your pain is not controlled, your pain is worsening, your pain is unusual for you, your pain is concerning for you and you have a fever Follow-up/Referrals: STATE ELIAZAR GARCIA [Primary Care Provider] - Diet: Heart Healthy Diet Texture: Mechanical soft (ground) Diet Comment: Please follow speech therapy recommendations as noted below Addtl Attending Provider Instructions: Follow-up with primary care physician in 1 week. New medications: Tramadol 25 mg every 6 hours as needed for pain Folic acid 1 mg p.o. daily Probiotics daily Please ensure adequate daily fluid intake, offer juice and water every shift Please provide strict perineal care, daily bathing to prevent recurrent UTIs Consider screening urinalysis every 2 weeks, monitor closely for signs of UTI Please follow speech therapy recommendations: Minced and moist diet Aspiration precautions Alternate solids and liquid Supervised meals Fully alert and upright Give meds in a carrier Single bites/small sips/slow rate Pending Studies at Discharge: No Stand-Alone Forms: My [facility] Medications and DC Order Prescriptions: New tramadol 50 mg Tablet 25 mg PO Q6H PRN (Reason: pain) Qty: 10 RF: 0 folic acid 1 mg Tablet 1 mg PO QAM 30 Days Qty: 30 RF: 0 Continued zinc [Chelated Zinc] 50 mg Tablet 50 mg PO DAILY Qty: 0 RF: 0 alendronate 70 mg Tablet 70 mg PO WK Qty: 0 RF: 0 omeprazole 20 mg Capsule,Delayed Release(Dr/Ec) 20 mg PO DAILY Qty: 0 RF: 0 valsartan 160 mg Tablet 160 mg PO DAILY Qty: 0 RF: 0 citalopram 20 mg tablet 20 mg PO DAILY Qty: 7 RF: 1 cranberry 500 mg Capsule 500 mg PO DAILY RF: 0 Discontinued ibuprofen [IBU] 600 mg tablet 600 mg PO Q6 PRN (Reason: Pain) RF: 0 nitrofurantoin monohyd/m-cryst 100 mg capsule 100 mg PO BID RF: 0 Discharge Orders: Discharge Order (Routine); Ordered 12/12/18 Ordered By: Santos Tapia Admission Data Admit Date/Time: 12/08/18 17:52 Attending Provider: Santos Tapia Admit Provider: Jelani Lofton Primary Care Provider: STATE ELIAZAR GARCIA Other Providers: Jelani Lofton ; Marysol Mckenna ; Kelsea Draper ; Kurt Dias
== END 2018-12-12 17:54 | disposition home or self-care (01) | DRG 682 ==
LOC: ED 12:49 → 4W 12:49 → SUATTDRO 18:38 → 4W 19:18

== ENCOUNTER 2018-12-15 01:42 | Inpatient (IN) ==
[2018-12-15] MEDS ORDERED: SODIUM CHLORIDE 0.9% 1000ML 1,000 ML IV ONE ×2 (02:20→03:31)
[2018-12-15 03:05] LABS: Basophils # (auto) 0.01 K/uL (0-0.2); Basophils % (auto) 0.1 %; Eosinophils # (auto) 0.01 K/uL (0-0.5); Eosinophils % (auto) 0.1 %; Hematocrit (blood only) 31.5 % (37-47); Hemoglobin 10.7 g/dL (12.0-16.0); Immature Granulocytes # (auto) 0.03 K/uL (0.00-0.02); Immature Granulocytes % (auto) 0.3 %; Lymphocytes # (auto) 0.62 K/uL (1.2-3.4); Lymphocytes % (auto) 5.2 %; Mean Corpuscular Hemoglobin 32.4 pg (25-34); Mean Corpuscular Volume 95.5 fL (80-100); Mean Platelet Volume 10.8 fL (7.4-10.4); Monocytes # (auto) 1.47 K/uL (0.11-0.59); Monocytes % (auto) 12.3 %; Neutrophils # (auto) 9.84 K/uL (1.4-6.5); Platelet Count 177 K/uL (130-400); RDW Coefficient of Variation 13.1 % (11.5-14.5); RDW Standard Deviation 45.4 fL (36.4-46.3); White Blood Count 11.98 K/uL (4.8-10.8)
[2018-12-15] MEDS ORDERED: ACETAMINOPHEN 500 MG TAB PO STA (03:18)
[2018-12-15 03:21] LABS: Blood Urea Nitrogen 14 mg/dl (7-18); Calcium 9.1 mg/dl (8.5-10.1); Carbon Dioxide 26 mmol/L (21-32); Chloride 102 mmol/L (98-107); Est GFR (African American) 55.2; Est GFR (Non-African American) 47.6; Glucose 128 mg/dl (70-99); Potassium 3.9 mmol/L (3.5-5.1); Sodium 136 mmol/L (136-145)
[2018-12-15] MEDS ORDERED: PIPERACILLIN/TAZOBACTAM 4.5 GM/120 ML BAG IV ONE (03:31)
[2018-12-15] MEDS ORDERED: PIPERACILL/TAZOBAC CONSULT ACTIVE PRN (03:31)
[2018-12-15 03:33] LABS: Alanine Aminotransferase 45 U/L (12-78); Albumin Level 2.7 gm/dl (3.4-5.0); Alkaline Phosphatase 88 U/L (45-117); Aspartate Aminotransferase 29 U/L (15-37); Bilirubin Direct < 0.1 mg/dl (0-0.2); Bilirubin,Total 0.3 mg/dl (0.2-1); Total Protein 9.3 gm/dl (6.4-8.2)
[2018-12-15] MEDS ORDERED: VANCOMYCIN HCL 1,000 MG in SODIUM CHLORIDE 0.9% 500 ML IV ONE (04:24)
[2018-12-15] MEDS ORDERED: VANCOMYCIN CONSULT ACTIVE PRN (04:24)
[2018-12-15] MEDS ORDERED: VANCOMYCIN HCL 1 GM/270 ML BAG ONE (04:31)
[2018-12-15 04:36] LABS: Appearance Urine Clear (Clear); Bacteria Urine Automated Negative (Negative); Bilirubin Urine Negative (Negative); Blood Urine Trace (Negative); Cast Urine Automated 0 /lpf (0-5); Color Urine Yellow; Epithelial Cell Urine Auto 0-5 /lpf (0-5); Glucose Urine UA Negative (Negative); Ketones Urine Negative (Negative); Leukocyte Esterase Urine Negative (Negative); Nitrite Urine Negative (Negative); Protein Urine Negative (Negative); RBC Urine Automated 0-4 /hpf (0-4); Specific Gravity Urine 1.008 (1.000-1.030); Urobilinogen Urine Negative (Negative); WBC Urine Automated 0 /hpf (0-5); pH Urine 7.5 (4.5-7.5)
[2018-12-15] MEDS ORDERED: TRAMADOL HCL 50 MG TABLET PO PRN (06:11)
[2018-12-15] MEDS ORDERED: ONDANSETRON INJ 2 MG/ML 2 ML VIAL IV PRN (06:11)
[2018-12-15] MEDS ORDERED: NITROGLYCERIN SL 0.4 MG/TAB TAB SL PRN (06:11)
[2018-12-15] MEDS ORDERED: ACETAMINOPHEN 325 MG TAB PO PRN (06:11)
[2018-12-15] MEDS: SODIUM CHLORIDE 0.9% 1000ML 1,000 ML IV SCH ×2 (06:45→15:10)
--- NOTE | 2018-12-15 06:54 | XRay Report ---
XR chest 1V portable CLINICAL HISTORY: Altered mental status. COMPARISON STUDY: Chest radiograph December 07, 2018. FINDINGS: Lung volumes are normal. Minimal left basilar opacity favors atelectasis. There is no pneum othorax or pleural effusion. Cardiac size is normal. Mediastinal contours are normal. There is no denton dence for pulmonary edema. IMPRESSION: No acute cardiopulmonary findings. Electronically signed by: Craig Jacinto M.D. 12/15/2018 6:52 AM
--- NOTE | 2018-12-15 07:23 | CT Scan Report ---
CT chest wo con CLINICAL HISTORY: 88 years-old Female presenting with cough/ sepsis. TECHNIQUE: Multidetector CT imaging of the chest was performed without the use of intravenous contras t. IV contrast: None. One or more dose lowering techniques were used consistent with the principles o f ALARA (as low as reasonably achievable), including automatic exposure control, mA or kV adjustment to individual patient size, and/or use of iterative reconstruction. COMPARISON: Chest x-ray performed earlier today. CT DOSE (mGy.cm): The estimated cumulative dose is 584.19. FINDINGS: Behavioral Psychologist topogram: Orthopedic hardware. Soft tissues: Multiple underlying nodules in thyroid. No axillary, supraclavicular, or mediastinal ly mphadenopathy. Evaluation of the nolvia limited without intravenous contrast. Atherosclerosis of the ao rta. Aberrant right subclavian artery. Mild multichamber enlargement of the heart. Coronary artery an d aortic valve calcification. Trace bilateral pleural effusions may be present. No pericardial effusi on. Well-defined hypodensity in the left hepatic lobe, indeterminate though likely hepatic cyst. Cole tional hepatic cyst in the medial segment of the left hepatic lobe. Lungs and airways: No pneumothorax. Central airways patent. Pulmonary arteries enlarged relative to a djacent bronchi. No interlobular septal thickening. Minimal dependent changes likely atelectasis. Musculoskeletal: Lucent subcentimeter lesion in the sternum with disruption of the cortex anteriorly (series 6 image 142). IMPRESSION: 1. Indeterminate subcentimeter lucent/lytic lesion in the sternum. This is nonspecific. Correlate fo r an underlying malignancy though this could have benign or malignant etiologies. 2. Minimal bibasilar atelectasis and trace pleural effusions. No other convincing evidence of acute cardiopulmonary disease. 3. Mild cardiomegaly with mild volume overload. No advanced congestive change or pulmonary edema. The report will be called/faxed according to standard departmental protocol. Electronically signed by: Otis Smith M.D. 12/15/2018 7:22 AM
--- NOTE | 2018-12-15 07:29 | Emergency Department Note ---
Entered by Doretha Narayan acting as a scribe for ED Provider Note Name: Margarita Boudreaux Age: 88 F Arrives Via: EMS Informant: N/A CC: Illness HPI: 88 year old female arrives for evaluation of illness symptoms that were observed prior to arrival . The patient's RN relays that caretakers in [facility] observed the patient coughing and recorded a fever. The patient's medical records show that she was in the ED recently for weakness, lethargy and vaginal discharge. HPI is severely limited due unprovided nursing and EMS report. It is recorded that the patient has sever dementia and is unable to speak. ROS: See above HPI for pertinent positives & negatives. A total of 10 systems reviewed and were otherwise negative. Past Medical History: hypertension, mood disorder, vascular dementia, nephrolithiasis, mood disorder, and compression fracture of L1 vertebra Past Surgical History: lithotripsy, hip replacement, section, tonsillectomy , adenoidectomy Family History: No significant medical history that is contributing Social History: Lives in personal care facility ([facility]) Home Medications: Tramadol, valsartan, zinc, omeprazole, folic acid, citalopram, alendronate, and cranberry Allergies fish containing products, iodine, and shellfish derived Physical: Vitals: BP 163/88, P 104, R 20, O2 90% on RA , Temp 38.2 C Exam: GENERAL: Patient is elderly, frail, non verbal, mildly anxious appearing and in no acute distress. EYES: No scleral icterus, unremarkable pupils. ENT: Mucous membranes moist, no nasal congestion. NECK: No masses appreciated, no meningismus, trachea is midline. RESPIRATORY: No dyspnea. Clear to auscultation and equal bilaterally. No wheeze, no rhonchi. CARDIOVASCULAR: Mildly tachycardic rate and regular rhythm. No murmurs, rubs, gallops appreciated. GASTROINTESTINAL: Abdomen soft, non-tender, no peritonitis. Bowel sounds positive. No masses appreciated. BACK: No midline tenderness, no CVA tenderness EXTREMITIES: Normal motion all extremities, no cyanosis, no edema. NEUROLOGIC: Awake and seems anxious, severe dementia, no acute motor or sensory deficits, no focal weakness, cranial nerves grossly intact. SKIN: No rash, no jaundice, no diaphoresis. ED Course: Prior Medical Record, Triage/Nursing Notes, Medications, Allergies reviewed by Me Vital Signs: reviewed and remarkable for febrile, tachy, htn Labs: Reviewed and remarkable for elevated lactate Interventions: saline lock, nss bolus 2 L IV, Zosyn 4.5gm IV, Vanco 1 g IV Imaging: X ray results are stated below per my interpretation: Chest: 1 view: No infiltrate, no effusion, normal cardiac border. Blood pressure: Normal. No Referral necessary Course: 0151: Past medical records reviewed. The patient was evaluated in room A11. A complete history and physical exam was performed. 0223: The nurses attempted to place a Vora with no success due to drainage. The note that the patient had copious exudate/pus in vaginal vault obscuring urethra and was unable to pass Vora. They note rectal temperature which confirms patient is febrile. Blood cultures, fluids and lactate were ordered. Consults: Dr Bustamante will evaluate further Disposition: Hospitalization Differentials: metabolic, infection, hypoglycemia, electrolyte abnormalities, cardiac sources, intracerebral event, toxicologic, neurologic, as well as others were entertained. Medical Decision Makin yr old demented female transferred from detention for uncertain cause arrives febrile, tachy. Mildly anxious by exam but otherwise no significant distress. Tachy with some mild hypoxia. She was found to have elevated lactic acid. On getting straight cath UA nursing noted exudate but on second evaluation this was gone. CXR unremarkable. UA clear. HR and temp improving with above. She appears stable at this time but with fever unknown origin and elevated lactic acid I feel she will need to come in for further monitoring. She received 30ml/kg IV fluids as well as broad spectrum abx after cultures obtained. She was noted to have no abdominal TTP nor nuchal ridgidity on several evaluations. Unclear why issues with exudate on intial straight cath though review chart notes she is already seen by String Top Se[employer] for this issue previous admission. Without further drainage and no TTP I do not feel imaging nor emergent rn gynecology eval indicated. Impression: Fever Acidosis Lactic The scribe's documentation has been prepared under my direction and personally reviewed by me in its entirety. I confirm that the note above accurately reflects all work, treatment, procedures, and medical decision making performed by me. 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 Required: No Beliefs That Will Affect Care: None Current Living Situation: Personal Care Facility Current Living Situation Comment: [facility] Other Information That Helps Us Care for You: No Feels Safe at Home: Yes Smoking Status: Never smoker Hx Alcohol Use: No Hx Substance Use: No Results & Data Vital Signs Vital Signs - 24 hr 12/15/18 01:47 12/15/18 01:50 12/15/18 01:52 Temperature 37.0 C Temperature Source Oral Sepsis Recent Fever Within 48 Hours Yes Sepsis Action Taken by Nursing No Action Required Pulse Rate 104 H 106 H 105 H Pulse Rate from SpO2 Sensor 106 H 105 H Respiratory Rate 20 23 21 Blood Pressure 163/88 H 163/88 H Blood Pressure Mean 113 113 Blood Pressure Position Lying Pulse Oximetry 90 92 92 Oxygen Delivery Method Room Air 12/15/18 02:00 12/15/18 02:18 12/15/18 03:00 Temperature 38.5 C H Temperature Source Rectal Sepsis Recent Fever Within 48 Hours Sepsis Action Taken by Nursing Pulse Rate 106 H 115 H Pulse Rate from SpO2 Sensor 102 H 111 H Respiratory Rate 29 H 22 Blood Pressure Blood Pressure Mean Blood Pressure Position Pulse Oximetry 92 92 Oxygen Delivery Method 12/15/18 03:13 12/15/18 04:00 12/15/18 04:01 Temperature Temperature Source Sepsis Recent Fever Within 48 Hours Sepsis Action Taken by Nursing Pulse Rate 104 H 101 H 107 H Pulse Rate from SpO2 Sensor 102 H Respiratory Rate 24 21 19 Blood Pressure 164/66 H 125/81 Blood Pressure Mean 98 95 Blood Pressure Position Pulse Oximetry 93 Oxygen Delivery Method 12/15/18 04:30 12/15/18 05:00 Temperature Temperature Source Sepsis Recent Fever Within 48 Hours Sepsis Action Taken by Nursing Pulse Rate 99 H 93 H Pulse Rate from SpO2 Sensor 97 H 93 H Respiratory Rate 24 23 Blood Pressure 126/57 L Blood Pressure Mean 80 Blood Pressure Position Pulse Oximetry 91 94 Oxygen Delivery Method Laboratory Data Result diagrams: 12/15/18 02:50 12/15/18 02:50 Lab Results 12/15/18 12/15/18 12/15/18 Range/Units 02:50 02:50 02:50 WBC 11.98 H (4.8-10.8) K/uL RBC 3.30 L (4.2-5.4) M/uL Hgb 10.7 L (12.0-16.0) g/dL Hct 31.5 L (37-47) % MCV 95.5 (80-100) fL MCH 32.4 (25-34) pg MCHC 34.0 (32-36) g/dL RDW Std Deviation 45.4 (36.4-46.3) fL RDW Coeff of Campos 13.1 (11.5-14.5) % Plt Count 177 (130-400) K/uL MPV 10.8 H (7.4-10.4) fL Immature Gran % (Auto) 0.3 % Neut % (Auto) 82.0 % Lymph % (Auto) 5.2 % Cook % (Auto) 12.3 % Eos % (Auto) 0.1 % Baso % (Auto) 0.1 % Immature Gran # (Auto) 0.03 H (0.00-0.02) K/uL Neut # (Auto) 9.84 H (1.4-6.5) K/uL Lymph # (Auto) 0.62 L (1.2-3.4) K/uL Cook # (Auto) 1.47 H (0.11-0.59) K/uL Eos # (Auto) 0.01 (0-0.5) K/uL Baso # (Auto) 0.01 (0-0.2) K/uL Sodium 136 (136-145) mmol/L Potassium 3.9 (3.5-5.1) mmol/L Chloride 102 (98-107) mmol/L Carbon Dioxide 26 (21-32) mmol/L Anion Gap 8.0 (3-11) BUN 14 (7-18) mg/dl Creatinine 1.04 (0.6-1.2) mg/dl Est Cr Clr Drug Dosing Not Reportable Est GFR ( Amer) 55.2 Est GFR (Non-Af Amer) 47.6 BUN/Creatinine Ratio 13.0 (10-20) Glucose 128 H (70-99) mg/dl Lactate 2.7 H* (0.4-2.0) mmol/L Calcium 9.1 (8.5-10.1) mg/dl Total Bilirubin 0.3 (0.2-1) mg/dl Direct Bilirubin < 0.1 (0-0.2) mg/dl AST 29 (15-37) U/L ALT 45 (12-78) U/L Alkaline Phosphatase 88 (45-117) U/L Total Protein 9.3 H (6.4-8.2) gm/dl Albumin 2.7 L (3.4-5.0) gm/dl Urine Color Urine Appearance (Clear) Urine pH (4.5-7.5) Ur Specific [place] (1.000-1.030) Urine Protein (Negative) Urine Glucose (UA) (Negative) Urine Ketones (Negative) Urine Blood (Negative) Urine Nitrite (Negative) Urine Bilirubin (Negative) Urine Urobilinogen (Negative) Ur Leukocyte Esterase (Negative) Urine WBC (Auto) (0-5) /hpf Urine RBC (Auto) (0-4) /hpf U Hyaline Cast (Auto) (0-5) /lpf U Epithel Cells (Auto) (0-5) /lpf Urine Bacteria (Auto) (Negative) 12/15/18 Range/Units 04:18 WBC (4.8-10.8) K/uL RBC (4.2-5.4) M/uL Hgb (12.0-16.0) g/dL Hct (37-47) % MCV (80-100) fL MCH (25-34) pg MCHC (32-36) g/dL RDW Std Deviation (36.4-46.3) fL RDW Coeff of Campos (11.5-14.5) % Plt Count (130-400) K/uL MPV (7.4-10.4) fL Immature Gran % (Auto) % Neut % (Auto) % Lymph % (Auto) % Cook % (Auto) % Eos % (Auto) % Baso % (Auto) % Immature Gran # (Auto) (0.00-0.02) K/uL Neut # (Auto) (1.4-6.5) K/uL Lymph # (Auto) (1.2-3.4) K/uL Cook # (Auto) (0.11-0.59) K/uL Eos # (Auto) (0-0.5) K/uL Baso # (Auto) (0-0.2) K/uL Sodium (136-145) mmol/L Potassium (3.5-5.1) mmol/L Chloride (98-107) mmol/L Carbon Dioxide (21-32) mmol/L Anion Gap (3-11) BUN (7-18) mg/dl Creatinine (0.6-1.2) mg/dl Est Cr Clr Drug Dosing Est GFR ( Amer) Est GFR (Non-Af Amer) BUN/Creatinine Ratio (10-20) Glucose (70-99) mg/dl Lactate (0.4-2.0) mmol/L Calcium (8.5-10.1) mg/dl Total Bilirubin (0.2-1) mg/dl Direct Bilirubin (0-0.2) mg/dl AST (15-37) U/L ALT (12-78) U/L Alkaline Phosphatase (45-117) U/L Total Protein (6.4-8.2) gm/dl Albumin (3.4-5.0) gm/dl Urine Color Yellow Urine Appearance Clear (Clear) Urine pH 7.5 (4.5-7.5) Ur Specific [place] 1.008 (1.000-1.030) Urine Protein Negative (Negative) Urine Glucose (UA) Negative (Negative) Urine Ketones Negative (Negative) Urine Blood Trace H (Negative) Urine Nitrite Negative (Negative) Urine Bilirubin Negative (Negative) Urine Urobilinogen Negative (Negative) Ur Leukocyte Esterase Negative (Negative) Urine WBC (Auto) 0 (0-5) /hpf Urine RBC (Auto) 0-4 (0-4) /hpf U Hyaline Cast (Auto) 0 (0-5) /lpf U Epithel Cells (Auto) 0-5 (0-5) /lpf Urine Bacteria (Auto) Negative (Negative) Administered Medications Sodium Chloride (Nss 1000ml) 1,000 mls @ 100 mls/hr IV .Q10H CED Stop: 01/14/19 06:10 Last Admin: 12/15/18 06:45 Dose: 100 mls/hr Documented by: [id number] Discontinued Medications Acetaminophen (Tylenol) 1,000 mg PO NOW STA Stop: 12/15/18 03:19 Last Admin: 12/15/18 03:22 Dose: 1,000 mg Documented by: [id number] Sodium Chloride (Nss 1000ml) 1,000 mls @ 999 mls/hr IV .Q1H1M ONE Stop: 12/15/18 03:20 Last Infusion: 12/15/18 03:43 Dose: 0 mls/hr Documented by: [id number] Admin: 12/15/18 02:30 Dose: 999 mls/hr Documented by: [id number] Piperacillin Sod/Tazobactam Sod (Zosyn) 4.5 gm in 120 mls @ 240 mls/hr IV NOW ONE Stop: 12/15/18 04:00 Last Infusion: 12/15/18 04:24 Dose: 0 mls/hr Documented by: [id number] Admin: 12/15/18 03:42 Dose: 240 mls/hr Documented by: [id number] Sodium Chloride (Nss 1000ml) 1,000 mls @ 999 mls/hr IV .Q1H1M ONE Stop: 12/15/18 04:31 Last Infusion: 12/15/18 04:24 Dose: 0 mls/hr Documented by: [id number] Admin: 12/15/18 03:42 Dose: 999 mls/hr Documented by: [id number] Vancomycin HCl 1,000 mg/ (Sodium Chloride) 520 mls @ 200 mls/hr IV NOW ONE Stop: 12/15/18 06:59 Last Admin: 12/15/18 04:53 Dose: 200 mls/hr Documented by: [id number] Vancomycin HCl (Vancomycin Hcl) Confirm Administered Dose 1,000 mg .ROUTE .STK- MED ONE Stop: 12/15/18 04:32 Last Admin: 12/15/18 04:33 Dose: Not Given Documented by: [id number] Discharge Plan Visit Data *Final* Discharge Date/Time: 12/15/18 05:37 Chief Complaint: Illness Stated Complaint: VOMITING ED Provider: Perfecto Pennington Discharge Problem: Fever, Acidosis, lactic Patient Disposition: Admitted As Inpatient Discharge Instructions Interventions: ED Discharge Assessment Last Done: 12/15/18 05:37 Discharge Problem: Fever Qualifiers: Fever type: unspecified Qualified Code(s): R50.9 - Fever, unspecified The scribe's documentation has been prepared under my direction and personally reviewed by me in its entirety. I confirm that the note above accurately reflects all work, treatment, procedures, and medical decision making performed by me.
--- NOTE | 2018-12-15 07:50 | CT Scan Report ---
CT abd pelvis wo con CLINICAL HISTORY: 88 years-old Female presenting with vomiting, cough, sepsis, nonverbal. TECHNIQUE: Multidetector CT of the abdomen and pelvis was performed without the use of intravenous co ntrast. IV contrast: None. One or more dose lowering techniques were used consistent with the princip les of ALA (as low as reasonably achievable), including automatic exposure control, mA or kV adjust ment to individual patient size, and/or use of iterative reconstruction. COMPARISON: 12/07/2018. CT DOSE (mGy.cm): The estimated cumulative dose is 584.19 mGy.cm. FINDINGS: Fire Suppression Captain topogram: Total left hip arthroplasty. Image quality is degraded by patient positioning with the arms at the sides and across the abdomen. T his mildly degrades diagnostic sensitivity the exam. Lung bases: Top normal heart size. Coronary artery and aortic valve calcification. Trace bilateral pl eural effusions. Minimal dependent changes likely atelectasis. Pulmonary vascular prominence. No inte rlobular septal thickening. Liver: Normal morphology. Normal density. Several well-defined hypodense lesions, indeterminate thoug h possibly hepatic cysts and unchanged from prior. Biliary: No gross biliary ductal dilatation allowing for noncontrast technique. The gallbladder is li bart physiologically distended. No evidence of tension, gallbladder wall thickening, or pericholecyst ic inflammatory change. Pancreas: Normal noncontrast appearance. Spleen: Normal noncontrast appearance. Adrenal glands: Normal noncontrast appearance. Kidneys and ureters: Exophytic cyst arising from the right kidney. No nephrolithiasis or hydronephros is. Mild bilateral nonspecific perinephric fat infiltration. Ureters nondistended. Bladder: Incompletely evaluated secondary to underdistention. Pelvic organs: Redemonstration of the cystic left ovarian lesion measuring approximately 5 cm, less w ell characterized on the current exam and previously demonstrated septated. Normal noncontrast appear ance of the uterus and right ovary. Bowel: Normal appendix. No bowel obstruction. Peritoneal cavity: No free fluid or intraperitoneal gas. Lymph nodes: No gross lymphadenopathy allowing for noncontrast technique. Vasculature: Atherosclerosis of the normal caliber abdominal aorta. Abdominal wall: Mild body wall edema. Musculoskeletal: Osteopenia. Multilevel degenerative changes of the spine. Cortical thickening and co arsened trabecula in the femurs, right ilium, and L1 vertebral body likely indicative of Paget's dise ase. Mild to moderate height loss of L1 greater on the left and unchanged from prior. IMPRESSION: 1. Allowing for noncontrast technique, no acute intra-abdominal pathology. 2. Distended gallbladder without other evidence to suggest gallbladder pathology. This is likely on a physiologic basis. Please ensure the absence of right upper quadrant symptoms. 3. Cystic left ovarian lesion on expected in a postmenopausal female and better characterized on chivo or ultrasound from 12/08/2018. 4. Paget's disease as well as superimposed chronic compression fracture of L1. Electronically signed by: Otis Smith M.D. 12/15/2018 7:49 AM
[2018-12-15] MEDS: CITALOPRAM 20 MG TAB PO SCH (07:59)
[2018-12-15] MEDS: VALSARTAN 80 MG TAB PO SCH (07:59)
[2018-12-15] MEDS: CYANOCOBALAMIN 500 MCG TABLET (VITAMIN B-12) PO SCH (07:59)
[2018-12-15] MEDS: PANTOprazole 40 MG TAB PO SCH (07:59)
[2018-12-15] MEDS: ZINC SULFATE 220 MG CAPSULE PO SCH (07:59)
[2018-12-15] MEDS: FOLIC ACID 1 MG TAB PO SCH (07:59)
[2018-12-15] MEDS ORDERED: PIPERACILLIN/TAZOBACTAM 3.375 GM in DEXTROSE 5% 100 ML IV SCH (08:00)
[2018-12-15] MEDS: HEPARIN SOD 5,000 UNIT/0.5 ML VIAL SQ SCH ×2 (08:20→20:46)
[2018-12-15] MEDS ORDERED: NON-FORMULARY MEDICATION (Cranberry 500 MG) PO SCH (09:00)
[2018-12-15] MEDS ORDERED: NON-FORMULARY MEDICATION (Food Supplemt, Lactose-Reduced [Boost] 1 EA) PO SCH (09:00)
[2018-12-15] MEDS ORDERED: PNEUMOCOCCAL ADMINISTRATION CHARGE ONE (09:15)
[2018-12-15] MEDS ORDERED: PNEUMOCOCCAL POLYSACCHARIDES 25 MCG/0.5 ML VIAL/SYR IM ONE (09:15)
--- NOTE | 2018-12-15 09:26 | History and Physical Report ---
DATE OF ADMISSION: 12/15/2018 CHIEF COMPLAINT: Cough and vomiting. HISTORY OF PRESENT ILLNESS: This is an 88-year-old female with past medical history significant for vascular dementia, hypertension, osteoporosis, recurrent UTIs, history of L1 compression fracture, anemia. The patient is from [facility], was recently in the hospital for recurrent metabolic encephalopathy secondary to UTI recurrent, PAT and was discharged back on December 12, was brought in because as per nursing staff, they noticed cough in the evening and when they checked her, she also had vomiting few times and her temperature spiked, so they brought down here. The patient is currently in the ER, had temperature spike, mild tachycardia, mild elevation of white count and lactic acid was 2.7, but there is no obvious source of infection. Chest x-ray was okay. UA was negative. The patient is alert and awake, obeys simple commands but mostly seemed to be nonverbal. As per the history also the patient is nonverbal with advanced dementia. I tried to call the daughter, but went to voicemail. Received Zosyn and vancomycin in the ER. Currently, resting comfortable and hemodynamically stable. Could not get any history from the patient. She is alert and awake, moving her neck okay. ALLERGIES: FISH CONTAINING PRODUCTS, IODINE, SHELLFISH. PAST MEDICAL HISTORY: As mentioned above. PAST SURGICAL HISTORY: Lithotripsy, history of hip replacement. MEDICATIONS: The patient is on alendronate 70 mg p.o. weekly, citalopram 20 mg p.o. daily, cranberry 500 mg p.o. daily, vitamin B12 1000 mcg p.o. daily, folic acid 1 mg p.o. daily, lactose reduced Boost 1 can daily, omeprazole 20 mg p.o. daily, tramadol 25 mg p.o. q.6 hours p.r.n., valsartan 160 mg p.o. daily, zinc 50 mg p.o. daily. FAMILY HISTORY: Noncontributory. SOCIAL HISTORY: Currently lives in a personal care facility at [facility]. No alcohol use, no substance abuse as per records. REVIEW OF SYMPTOMS: Unobtainable as patient is mostly nonverbal. PHYSICAL EXAMINATION: GENERAL: The patient is alert and awake, does not seem to be in acute distress. VITAL SIGNS: Temperature 38.5, pulse 107, respiratory rate 19, blood pressure 125/81, oxygen 93% on room air. HEENT: No pallor, no icterus. Pupils equal, round, reactive to light. NECK: No neck masses. Supple. CARDIOVASCULAR: S1, S2 heard, regular rate and rhythm, no murmur, no gallop. RESPIRATORY SYSTEM: Normal AP diameter. No accessory muscle use. No wheezing, no crackles. ABDOMEN: Soft, bowel sounds present, nontender. No distention. CENTRAL NERVOUS SYSTEM: Alert and awake, , nonverbal. Obeys simple commands. EXTREMITIES: No edema, no erythema. LABORATORY DATA: WBC 11.9, hemoglobin 10.7, hematocrit 31.5, platelets 177. Sodium 136, potassium 3.9, chloride 102, bicarb 26, BUN 14, creatinine 1.04, serum glucose 128, lactate 2.7, calcium 9.1, total bilirubin 0.3, direct bilirubin less than 0.1, AST 29, ALT 45, alkaline phosphatase 88. Urinalysis negative . Chest x-ray, no acute findings seen. ASSESSMENT AND PLAN: This is an 88-year-old female who presents with possible sepsis. 1. Possible sepsis with elevated lactic acid, tachycardia, fever, white count, but no obvious source identified. Chest x-ray was okay. Urinalysis is negative. The patient has cough at correction and also fever and vomiting, so we will get a CT chest, abdomen and pelvis and follow the results. The patient received Zosyn and vancomycin in the ER which we will continue and follow the cultures and closely monitor in tele floor and follow the repeat lactic acid. 2. CKD stage 3 creatinine seems to be stable. We will follow the labs. 3.History of recent fluid collection in the uterus as well as in the vaginal area. In the ER today, there is some vaginal discharge as per the ER physician, but on last admission was seen by environmental engineer, at that time it was thought possibly non malignant and the vaginal cultures are negative. Needs followup. 3. Left ovarian cyst, seen by the environmental engineer last admission. Needs followup. 4. History of L1 compression fracture at last admission. Needs PT/OT when stable. 5. Hypertension. We will continue home med with holding parameter. 6. Vascular dementia. Follows some commands but nonverbal at baseline. As per last admission requires activities of daily living including feeding and dressing and bathing. On citalopram.Will consult speech therapy.Full liquid diet for now. 7. History of anemia. Folate level was low last admission, on folic acid and vitamin B12. Hemoglobin is 10.7 this admission. Needs followup. 8. Deep venous thrombosis prophylaxis. Heparin subcutaneously. 9. Disposition: Admit to tele floor. PT and OT per discharge. Social Service to help with discharge planning. 10. Discharged to [facility] when patient is stable. MTDD
[2018-12-15 10:03] LABS: BUN Creatinine Ratio 10.9 (10-20); Calcium 8.8 mg/dl (8.5-10.1); Creatinine Clr Calc Pharmacy 29.6 ml/min; Est GFR (African American) 56.5; Est GFR (Non-African American) 48.7; Potassium 3.5 mmol/L (3.5-5.1)
--- NOTE | 2018-12-15 11:55 | Pharmacy Report ---
Pharmacy Abx Initial Consult - Date of Service December 15, 2018 - Pharmacy Dosing Scope Date of Consult: 12/15 Consultation requested by: Dr. Bustamante Pharmacy is consulted to initiate vancomcyin/zosyn IV/PO dosing therapy, order appropriate labs and adjust drug dose/frequency. - Subjective The patient is a 88 year old F admitted on 12/15/18 05:11. - Objective Height: 5 ft 2 in Weight: 54.6 kg Vital Signs (Past 12hrs): Vital Signs Temp Pulse Pulse Resp BP BP Pulse Ox 12/15/18 07:15 36.5 C 89 16 108/67 96 12/15/18 06:11 12/15/18 06:10 36.8 C 87 20 124/71 94 12/15/18 05:37 94 H 21 126/57 L 93 12/15/18 05:00 93 H 23 126/57 L 94 12/15/18 04:30 99 H 24 91 12/15/18 04:01 107 H 19 125/81 12/15/18 04:00 101 H 21 12/15/18 03:13 104 H 24 164/66 H 93 12/15/18 03:00 115 H 22 92 12/15/18 02:18 38.5 C H 12/15/18 02:00 106 H 29 H 92 12/15/18 01:52 105 H 21 92 12/15/18 01:50 106 H 23 163/88 H 92 12/15/18 01:47 37.0 C 104 H 20 163/88 H 90 Pulse Ox 12/15/18 07:15 12/15/18 06:11 94 12/15/18 06:10 12/15/18 05:37 12/15/18 05:00 12/15/18 04:30 12/15/18 04:01 12/15/18 04:00 12/15/18 03:13 12/15/18 03:00 12/15/18 02:18 12/15/18 02:00 12/15/18 01:52 12/15/18 01:50 12/15/18 01:47 Lab Results (24hrs): Laboratory Tests (24 Hours) 12/15/18 12/15/18 12/15/18 09:25 02:50 02:50 WBC 11.98 H Neut # (Auto) 9.84 H Creatinine 1.02 1.04 Est Cr Clr Drug Dosing 29.6 Not Reportable Micro Results: 12/15/18 02:50 Aerobic Blood Culture - Pending Blood Anaerobic Blood Culture - Pending 12/15/18 02:55 Aerobic Blood Culture - Pending Blood Anaerobic Blood Culture - Pending - Risk Factors for Resistance * Resident in a fdc or extended-care facility * Hospitalization for 48 hours or more within the past 90 days - Assessment & Plan Assessment 88 year old F with recent admission for UTI, DKA and discharged on December 12, reports of fever, cough, vomiting without obvious source of infection. Starting empiric vancomycin/zosyn. WBC mildly elevated, lactate 4.0, Tmax 38.5 Plan Vancomycin IV * Estimated PK Parameters: Vdf 0.7 , Sharif 0.078309 hr-1, t1/2 23.9 hr * Loading dose: 1000 mg (18 mg/kg) * Maintenance dose: 750 mg IV (14 mg/kg) every 24 hours * Goal trough level 15-20 mcg/mL * Trough to be ordered if medication to continue past 48 hours Pharmacy will continue to follow and will adjust dose/frequency as necessary. Thank you.
[2018-12-15 12:18] LABS: Cdiff Antigen Positive
[2018-12-15 12:20] LABS: Cdiff Toxin A+B Positive Cdiff Toxin (Negative)
--- NOTE | 2018-12-15 13:17 | Hospitalist Progress Note ---
Date of Service December 15, 2018 Assessment & Plan (1) C. difficile colitis: Admitted with fever, nausea and vomiting with generalized weakness Met the criteria of sepsis on admission with fever, tachycardia and increasing lactic acid Started with intravenous vancomycin and Zosyn and those have been discontinued Has been getting cautious amount of IV fluid Recent admission with metabolic encephalopathy secondary to UTI and treated with intravenous antibiotic Stool came back positive for C. difficile toxin Started with oral vancomycin and Lactinex We will recheck lactic acid in 6 hours (2) Generalized weakness: Secondary to recent C. difficile infection (3) Vascular dementia: Seems to be stable She has been minimally verbal No acute delirium (4) HTN (hypertension): Blood pressure is controlled Other problem of left ovarian cyst, and on compression fracture, chronic anemia remains stable DVT prophylaxis Subcu heparin CODE STATUS Full Discussed with daughter in detail Subjective 12/15 The patient was seen and examined in telemetry unit in presence of the daughter She is minimally communicative with dementia and was admitted with fever and cough with vomiting She was discharged from the hospital on the of last month and she was treated for complicated UTI She has not been eating or drinking at the nursing Review of Systems Review of Systems: Unobtainable due to endotracheal tube Physical Exam Physical Exam: Lying in bed without any significant symptoms Constitutional: well developed, well nourished and + ill appearing; no acute distress Eyes: PERRL, conjunctivae normal, anicteric sclerae ENMT: external ear and nose normal, oropharynx normal Neck: trachea midline, no thyromegaly Respiratory: normal respiratory effort; no respiratory distress Auscultation: + diminished lung sounds and + crackles (Minimal crackles at the bases) Cardiovascular: Rate/Rhythm: regular rate and regular rhythm Heart Sounds: no murmur Gastrointestinal (Abdomen): Inspection/Auscultation: abdomen normal to inspection Percussion/Palpation: abdomen soft Musculoskeletal: No acute arthritis in any joint Neurologic: moves all extremities; no focal motor deficits Has vascular dementia and minimal communication Lymphatic: no cervical or axillary lymphadenopathy Results & Data Vital Signs (Past 12 Hours) Vital Signs Temp Pulse Pulse Resp BP BP Pulse Ox 12/15/18 12:18 37.1 C 74 16 127/67 96 12/15/18 07:15 36.5 C 89 16 108/67 96 12/15/18 06:11 12/15/18 06:10 36.8 C 87 20 124/71 94 12/15/18 05:37 94 H 21 126/57 L 93 12/15/18 05:00 93 H 23 126/57 L 94 12/15/18 04:30 99 H 24 91 12/15/18 04:01 107 H 19 125/81 12/15/18 04:00 101 H 21 12/15/18 03:13 104 H 24 164/66 H 93 12/15/18 03:00 115 H 22 92 12/15/18 02:18 38.5 C H 12/15/18 02:00 106 H 29 H 92 12/15/18 01:52 105 H 21 92 12/15/18 01:50 106 H 23 163/88 H 92 12/15/18 01:47 37.0 C 104 H 20 163/88 H 90 Pulse Ox 12/15/18 12:18 12/15/18 07:15 12/15/18 06:11 94 12/15/18 06:10 12/15/18 05:37 12/15/18 05:00 12/15/18 04:30 12/15/18 04:01 12/15/18 04:00 12/15/18 03:13 12/15/18 03:00 12/15/18 02:18 12/15/18 02:00 12/15/18 01:52 12/15/18 01:50 12/15/18 01:47 Laboratory Results Short CBC 12/15/18 Range/Units 02:50 WBC 11.98 H (4.8-10.8) K/uL Hgb 10.7 L (12.0-16.0) g/dL Hct 31.5 L (37-47) % Plt Count 177 (130-400) K/uL BMP 12/15/18 12/15/18 02:50 09:25 Sodium 136 138 Potassium 3.9 3.5 Chloride 102 107 Carbon Dioxide 26 23 BUN 14 11 Creatinine 1.04 1.02 Glucose 128 H 135 H Calcium 9.1 8.8 Liver Function 12/15/18 Range/Units 02:50 Total Bilirubin 0.3 (0.2-1) mg/dl Direct Bilirubin < 0.1 (0-0.2) mg/dl AST 29 (15-37) U/L ALT 45 (12-78) U/L Alkaline Phosphatase 88 (45-117) U/L Albumin 2.7 L (3.4-5.0) gm/dl Urine 12/15/18 Range/Units 04:18 Urine Color Yellow Urine Appearance Clear (Clear) Urine pH 7.5 (4.5-7.5) Ur Specific [place] 1.008 (1.000-1.030) Urine Protein Negative (Negative) Urine Glucose (UA) Negative (Negative) Medications Administered Current Inpatient Medications Acetaminophen (Tylenol) 650 mg PO Q4H PRN PRN Reason: Pain or Fever Stop: 01/14/19 06:10 Citalopram Hydrobromide (Celexa) 20 mg PO DAILY [facility] Stop: 01/14/19 08:59 Last Admin: 12/15/18 07:59 Dose: 20 mg Documented by: Cyanocobalamin (Vitamin B-12) 1,000 mcg PO DAILY [facility] Stop: 01/14/19 08:59 Last Admin: 12/15/18 07:59 Dose: 1,000 mcg Documented by: Folic Acid (Folvite) 1 mg PO QAM [facility] Stop: 01/14/19 08:59 Last Admin: 12/15/18 07:59 Dose: 1 mg Documented by: Heparin Sodium (Porcine) (Heparin Sodium (Porcine)) 5,000 units SQ Q12 [facility] Stop: 01/14/19 08:59 Last Admin: 12/15/18 08:20 Dose: 5,000 units Documented by: Sodium Chloride (Nss 1000ml) 1,000 mls @ 150 mls/hr IV .Q6H40M [facility] Stop: 12/15/18 19:30 Last Admin: 12/15/18 06:45 Dose: 100 mls/hr Documented by: Lactobacillus Acidophilus (Floranex) 4 tab PO BID [facility] Stop: 01/14/19 12:29 Nitroglycerin (Nitrostat) 0.4 mg SL UD PRN PRN Reason: Chest Pain Stop: 01/14/19 06:10 Ondansetron HCl (Zofran) 4 mg IV Q6H PRN PRN Reason: Nausea Stop: 01/14/19 06:10 Last Admin: 12/15/18 09:25 Dose: 4 mg Documented by: Pantoprazole Sodium (Protonix) 40 mg PO DAILY [facility] Stop: 01/14/19 08:59 Last Admin: 12/15/18 07:59 Dose: 40 mg Documented by: Raspberry (Raspberry) 5 ml PO Q6 [facility] Stop: 12/29/18 12:59 Tramadol HCl (Ultram) 25 mg PO Q6H PRN PRN Reason: pain Stop: 01/14/19 06:10 Valsartan (Diovan) 160 mg PO DAILY [facility] Stop: 01/14/19 08:59 Last Admin: 12/15/18 07:59 Dose: 160 mg Documented by: Vancomycin HCl (Vancomycin Hcl) 125 mg PO Q6 [facility] Stop: 12/25/18 12:59 Zinc Sulfate (Zinc Sulfate) 220 mg PO DAILY [facility] Stop: 01/14/19 08:59 Last Admin: 12/15/18 07:59 Dose: 220 mg Documented by:
[2018-12-15] MEDS: LACTOBACILLUS ACIDOPHILUS (FLORANEX) TAB PO SCH ×2 (13:30→20:46)
[2018-12-15] MEDS: VANCOMYCIN HCL 125 MG/2.5ML SOLN PO SCH ×3 (13:31→23:23)
[2018-12-15] MEDS: RASPBERRY SYRUP 5 ML UDP PO SCH ×3 (13:31→23:23)
[2018-12-16] MEDS ORDERED: VANCOMYCIN HCL 750 MG in SODIUM CHLORIDE 0.9% 250 ML IV SCH (05:00)
[2018-12-16 05:39] LABS: Basophils # (auto) 0.01 K/uL (0-0.2); Basophils % (auto) 0.1 %; Eosinophils # (auto) 0.05 K/uL (0-0.5); Eosinophils % (auto) 0.5 %; Hematocrit (blood only) 27.8 % (37-47); Hemoglobin 9.2 g/dL (12.0-16.0); Immature Granulocytes # (auto) 0.02 K/uL (0.00-0.02); Immature Granulocytes % (auto) 0.2 %; Lymphocytes # (auto) 1.26 K/uL (1.2-3.4); Lymphocytes % (auto) 11.9 %; Mean Corpuscular Hemoglobin 31.7 pg (25-34); Mean Corpuscular Hgb Conc 33.1 g/dL (32-36); Mean Corpuscular Volume 95.9 fL (80-100); Mean Platelet Volume 10.1 fL (7.4-10.4); Monocytes # (auto) 1.25 K/uL (0.11-0.59); Monocytes % (auto) 11.8 %; Neutrophils # (auto) 7.96 K/uL (1.4-6.5); Neutrophils % (auto) 75.5 %; Platelet Count 165 K/uL (130-400); RDW Coefficient of Variation 13.5 % (11.5-14.5); White Blood Count 10.55 K/uL (4.8-10.8)
[2018-12-16 06:04] LABS: BUN Creatinine Ratio 8.9 (10-20); Calcium 8.8 mg/dl (8.5-10.1); Creatinine Clr Calc Pharmacy 33.5 ml/min; Est GFR (African American) 65.7; Est GFR (Non-African American) 56.7; Magnesium 1.8 mg/dl (1.8-2.4); Potassium 3.8 mmol/L (3.5-5.1)
[2018-12-16] MEDS: VANCOMYCIN HCL 125 MG/2.5ML SOLN PO SCH ×3 (06:11→17:21)
[2018-12-16] MEDS: RASPBERRY SYRUP 5 ML UDP PO SCH ×3 (06:11→17:21)
[2018-12-16] MEDS: HEPARIN SOD 5,000 UNIT/0.5 ML VIAL SQ SCH ×2 (08:51→20:15)
[2018-12-16] MEDS: LACTOBACILLUS ACIDOPHILUS (FLORANEX) TAB PO SCH ×2 (08:51→20:16)
[2018-12-16] MEDS: CITALOPRAM 20 MG TAB PO SCH (08:52)
[2018-12-16] MEDS: ZINC SULFATE 220 MG CAPSULE PO SCH (08:52)
[2018-12-16] MEDS: VALSARTAN 80 MG TAB PO SCH (08:52)
[2018-12-16] MEDS: CYANOCOBALAMIN 500 MCG TABLET (VITAMIN B-12) PO SCH (08:52)
[2018-12-16] MEDS: PANTOprazole 40 MG TAB PO SCH (08:52)
[2018-12-16] MEDS: FOLIC ACID 1 MG TAB PO SCH (08:52)
--- NOTE | 2018-12-16 14:20 | Hospitalist Progress Note ---
Date of Service December 16, 2018 Assessment & Plan (1) C. difficile colitis: Admitted with fever, nausea and vomiting with generalized weakness Met the criteria of sepsis on admission with fever, tachycardia and increasing lactic acid Started with intravenous vancomycin and Zosyn and those have been discontinued Has been getting cautious amount of IV fluid Recent admission with metabolic encephalopathy secondary to UTI and treated with intravenous antibiotic Stool came back positive for C. difficile toxin Started with oral vancomycin and Lactinex We will recheck lactic acid in 6 hours-lactic acid normalized Still having diarrhea We will continue vancomycin We will transfer the patient to medical floor Blood cultures and urine culture have been negative White count has improved (2) Generalized weakness: Secondary to recent C. difficile infection Will need PT and OT evaluation (3) Vascular dementia: Seems to be stable She has been minimally verbal No acute delirium (4) HTN (hypertension): Blood pressure is controlled Other problem of left ovarian cyst, and on compression fracture, chronic anemia remains stable DVT prophylaxis Subcu heparin CODE STATUS Full Discussed with daughter in detail Discussed with daughter in detail again today 12/16 Subjective 12/15 The patient was seen and examined in telemetry unit in presence of the daughter She is minimally communicative with dementia and was admitted with fever and cough with vomiting She was discharged from the hospital on the of last month and she was treated for complicated UTI She has not been eating or drinking at the nursing 12/16 The patient was seen and examined in telemetry unit She remains stable without any significant distress at rest She has been minimally communicative as before Review of Systems Review of Systems: Unobtainable due to endotracheal tube Physical Exam Physical Exam: Lying in bed comfortably Constitutional: well developed, well nourished and + ill appearing; no acute distress Eyes: PERRL, conjunctivae normal, anicteric sclerae ENMT: external ear and nose normal, oropharynx normal Neck: trachea midline, no thyromegaly Respiratory: normal respiratory effort; no respiratory distress Auscultation: + diminished lung sounds and + crackles (Minimal crackles at the bases) Cardiovascular: Rate/Rhythm: regular rate and regular rhythm Heart Sounds: no murmur Gastrointestinal (Abdomen): Inspection/Auscultation: abdomen normal to inspection Percussion/Palpation: abdomen soft Neurologic: moves all extremities; no focal motor deficits Lymphatic: no cervical or axillary lymphadenopathy Results & Data Vital Signs (Past 12 Hours) Vital Signs Temp Pulse Resp BP Pulse Ox 12/16/18 11:38 36.9 C 65 16 132/75 95 12/16/18 07:35 37.0 C 71 16 123/63 96 12/16/18 03:24 37.2 C 84 18 148/70 H 94 Laboratory Results Short CBC 12/16/18 Range/Units 05:29 WBC 10.55 (4.8-10.8) K/uL Hgb 9.2 L (12.0-16.0) g/dL Hct 27.8 L (37-47) % Plt Count 165 (130-400) K/uL BMP 12/16/18 05:29 Sodium 141 Potassium 3.8 Chloride 110 H Carbon Dioxide 27 BUN 8 Creatinine 0.90 Glucose 95 Calcium 8.8 Medications Administered Current Inpatient Medications Acetaminophen (Tylenol) 650 mg PO Q4H PRN PRN Reason: Pain or Fever Stop: 01/14/19 06:10 Citalopram Hydrobromide (Celexa) 20 mg PO DAILY [facility] Stop: 01/14/19 08:59 Last Admin: 12/16/18 08:52 Dose: 20 mg Documented by: Cyanocobalamin (Vitamin B-12) 1,000 mcg PO DAILY [facility] Stop: 01/14/19 08:59 Last Admin: 12/16/18 08:52 Dose: 1,000 mcg Documented by: Folic Acid (Folvite) 1 mg PO QAM [facility] Stop: 01/14/19 08:59 Last Admin: 12/16/18 08:52 Dose: 1 mg Documented by: Heparin Sodium (Porcine) (Heparin Sodium (Porcine)) 5,000 units SQ Q12 [facility] Stop: 01/14/19 08:59 Last Admin: 12/16/18 08:51 Dose: 5,000 units Documented by: Lactobacillus Acidophilus (Floranex) 4 tab PO BID [facility] Stop: 01/14/19 12:29 Last Admin: 12/16/18 08:51 Dose: 4 tab Documented by: Nitroglycerin (Nitrostat) 0.4 mg SL UD PRN PRN Reason: Chest Pain Stop: 01/14/19 06:10 Ondansetron HCl (Zofran) 4 mg IV Q6H PRN PRN Reason: Nausea Stop: 01/14/19 06:10 Last Admin: 12/15/18 09:25 Dose: 4 mg Documented by: Pantoprazole Sodium (Protonix) 40 mg PO DAILY [facility] Stop: 01/14/19 08:59 Last Admin: 12/16/18 08:52 Dose: 40 mg Documented by: Raspberry (Raspberry) 5 ml PO Q6 [facility] Stop: 12/29/18 12:59 Last Admin: 12/16/18 12:52 Dose: 5 ml Documented by: Tramadol HCl (Ultram) 25 mg PO Q6H PRN PRN Reason: pain Stop: 01/14/19 06:10 Valsartan (Diovan) 160 mg PO DAILY [facility] Stop: 01/14/19 08:59 Last Admin: 12/16/18 08:52 Dose: 160 mg Documented by: Vancomycin HCl (Vancomycin Hcl) 125 mg PO Q6 [facility] Stop: 12/25/18 12:59 Last Admin: 12/16/18 12:52 Dose: 125 mg Documented by: Zinc Sulfate (Zinc Sulfate) 220 mg PO DAILY [facility] Stop: 01/14/19 08:59 Last Admin: 12/16/18 08:52 Dose: 220 mg Documented by:
[2018-12-17] MEDS: RASPBERRY SYRUP 5 ML UDP PO SCH ×4 (00:07→17:31)
[2018-12-17] MEDS: VANCOMYCIN HCL 125 MG/2.5ML SOLN PO SCH ×4 (00:07→17:31)
[2018-12-17] MEDS: LACTOBACILLUS ACIDOPHILUS (FLORANEX) TAB PO SCH ×2 (07:25→21:10)
[2018-12-17] MEDS: CITALOPRAM 20 MG TAB PO SCH (07:25)
[2018-12-17] MEDS: HEPARIN SOD 5,000 UNIT/0.5 ML VIAL SQ SCH ×2 (07:25→21:11)
[2018-12-17] MEDS: CYANOCOBALAMIN 500 MCG TABLET (VITAMIN B-12) PO SCH (07:25)
[2018-12-17] MEDS: FOLIC ACID 1 MG TAB PO SCH (07:26)
[2018-12-17] MEDS: PANTOprazole 40 MG TAB PO SCH (07:26)
[2018-12-17] MEDS: VALSARTAN 80 MG TAB PO SCH (07:26)
[2018-12-17] MEDS: ZINC SULFATE 220 MG CAPSULE PO SCH (07:27)
--- NOTE | 2018-12-17 10:57 | Hospitalist Progress Note ---
Date of Service December 17, 2018 Assessment & Plan (1) C. difficile colitis: Admitted with fever, nausea and vomiting with generalized weakness Met the criteria of sepsis on admission with fever, tachycardia and increasing lactic acid Started with intravenous vancomycin and Zosyn and those have been discontinued Has been getting cautious amount of IV fluid Recent admission with metabolic encephalopathy secondary to UTI and treated with intravenous antibiotic Stool came back positive for C. difficile toxin Started with oral vancomycin and Lactinex We will recheck lactic acid in 6 hours-lactic acid normalized Still having diarrhea We will continue vancomycin We will transfer the patient to medical floor To bowel movement since last night Clinically stable with stable labs Continue current treatment PT and OT evaluation Blood cultures and urine culture have been negative White count has improved (2) Generalized weakness: Secondary to recent C. difficile infection Will need PT and OT evaluation (3) Vascular dementia: Seems to be stable She has been minimally verbal No acute delirium (4) HTN (hypertension): Blood pressure is controlled Other problem of left ovarian cyst, and on compression fracture, chronic anemia remains stable DVT prophylaxis Subcu heparin CODE STATUS Full Discussed with daughter in detail Discussed with daughter in detail again today 12/16 Subjective 12/15 The patient was seen and examined in telemetry unit in presence of the daughter She is minimally communicative with dementia and was admitted with fever and cough with vomiting She was discharged from the hospital on the of last month and she was treated for complicated UTI She has not been eating or drinking at the nursing 12/16 The patient was seen and examined in telemetry unit She remains stable without any significant distress at rest She has been minimally communicative as before 12/17 The patient was seen and examined in medical floor She has been stable without any acute distress at rest Tries to communicate Denies any significant pain and/or symptoms Review of Systems Review of Systems: Unobtainable due to endotracheal tube Physical Exam Physical Exam: No apparent distress at rest Constitutional: well developed, well nourished and + ill appearing; no acute d istress Eyes: PERRL, conjunctivae normal, anicteric sclerae ENMT: external ear and nose normal, oropharynx normal Neck: trachea midline, no thyromegaly Respiratory: normal respiratory effort; no respiratory distress Auscultation: + diminished lung sounds and + crackles (Minimal crackles at the bases) Cardiovascular: Rate/Rhythm: regular rate and regular rhythm Heart Sounds: no murmur Gastrointestinal (Abdomen): Inspection/Auscultation: abdomen normal to inspection Percussion/Palpation: abdomen soft Musculoskeletal: No acute arthritis in any of the joints Neurologic: moves all extremities; no focal motor deficits Remains minimally verbal-at her baseline Lymphatic: no cervical or axillary lymphadenopathy Results & Data Vital Signs (Past 12 Hours) Vital Signs Temp Pulse Resp BP Pulse Ox 12/17/18 07:00 36.8 C 73 18 149/76 H 98 12/16/18 23:02 36.8 C 73 18 148/72 H 98 Medications Administered Current Inpatient Medications Acetaminophen (Tylenol) 650 mg PO Q4H PRN PRN Reason: Pain or Fever Stop: 01/14/19 06:10 Citalopram Hydrobromide (Celexa) 20 mg PO DAILY [facility] Stop: 01/14/19 08:59 Last Admin: 12/17/18 07:25 Dose: 20 mg Documented by: Cyanocobalamin (Vitamin B-12) 1,000 mcg PO DAILY [facility] Stop: 01/14/19 08:59 Last Admin: 12/17/18 07:25 Dose: 1,000 mcg Documented by: Folic Acid (Folvite) 1 mg PO QAM [facility] Stop: 01/14/19 08:59 Last Admin: 12/17/18 07:26 Dose: 1 mg Documented by: Heparin Sodium (Porcine) (Heparin Sodium (Porcine)) 5,000 units SQ Q12 [facility] Stop: 01/14/19 08:59 Last Admin: 12/17/18 07:25 Dose: 5,000 units Documented by: Lactobacillus Acidophilus (Floranex) 4 tab PO BID [facility] Stop: 01/14/19 12:29 Last Admin: 12/17/18 07:25 Dose: 4 tab Documented by: Nitroglycerin (Nitrostat) 0.4 mg SL UD PRN PRN Reason: Chest Pain Stop: 01/14/19 06:10 Ondansetron HCl (Zofran) 4 mg IV Q6H PRN PRN Reason: Nausea Stop: 01/14/19 06:10 Last Admin: 12/15/18 09:25 Dose: 4 mg Documented by: Pantoprazole Sodium (Protonix) 40 mg PO DAILY [facility] Stop: 01/14/19 08:59 Last Admin: 12/17/18 07:26 Dose: 40 mg Documented by: Raspberry (Raspberry) 5 ml PO Q6 [facility] Stop: 12/29/18 12:59 Last Admin: 12/17/18 06:01 Dose: 5 ml Documented by: Tramadol HCl (Ultram) 25 mg PO Q6H PRN PRN Reason: pain Stop: 01/14/19 06:10 Valsartan (Diovan) 160 mg PO DAILY [facility] Stop: 01/14/19 08:59 Last Admin: 12/17/18 07:26 Dose: 160 mg Documented by: Vancomycin HCl (Vancomycin Hcl) 125 mg PO Q6 [facility] Stop: 12/25/18 12:59 Last Admin: 12/17/18 06:01 Dose: 125 mg Documented by: Zinc Sulfate (Zinc Sulfate) 220 mg PO DAILY [facility] Stop: 01/14/19 08:59 Last Admin: 12/17/18 07:27 Dose: 220 mg Documented by:
[2018-12-18] MEDS: VANCOMYCIN HCL 125 MG/2.5ML SOLN PO SCH ×5 (00:17→23:43)
[2018-12-18] MEDS: RASPBERRY SYRUP 5 ML UDP PO SCH ×5 (00:17→23:43)
[2018-12-18] MEDS: FOLIC ACID 1 MG TAB PO SCH (08:34)
[2018-12-18] MEDS: CITALOPRAM 20 MG TAB PO SCH (08:34)
[2018-12-18] MEDS: LACTOBACILLUS ACIDOPHILUS (FLORANEX) TAB PO SCH ×2 (08:35→20:21)
[2018-12-18] MEDS: CYANOCOBALAMIN 500 MCG TABLET (VITAMIN B-12) PO SCH (08:35)
[2018-12-18] MEDS: PANTOprazole 40 MG TAB PO SCH (08:36)
[2018-12-18] MEDS: ZINC SULFATE 220 MG CAPSULE PO SCH (08:36)
[2018-12-18] MEDS: VALSARTAN 80 MG TAB PO SCH (08:36)
[2018-12-18] MEDS: HEPARIN SOD 5,000 UNIT/0.5 ML VIAL SQ SCH ×2 (08:38→20:21)
--- NOTE | 2018-12-18 11:06 | Hospitalist Progress Note ---
Date of Service December 18, 2018 Assessment & Plan (1) C. difficile colitis: Admitted with fever, nausea and vomiting with generalized weakness Met the criteria of sepsis on admission with fever, tachycardia and increasing lactic acid Started with intravenous vancomycin and Zosyn and those have been discontinued Has been getting cautious amount of IV fluid Recent admission with metabolic encephalopathy secondary to UTI and treated with intravenous antibiotic Stool came back positive for C. difficile toxin Started with oral vancomycin and Lactinex We will recheck lactic acid in 6 hours-lactic acid normalized Still having diarrhea We will continue vancomycin We will transfer the patient to medical floor To bowel movement since last night Clinically stable with stable labs Continue current treatment Decreasing bowel movement and denies any acute symptoms Likely to be discharged tomorrow Blood cultures and urine culture have been negative White count has improved (2) Generalized weakness: Secondary to recent C. difficile infection Will need PT and OT evaluation (3) Vascular dementia: Seems to be stable She has been minimally verbal No acute delirium (4) HTN (hypertension): Blood pressure is controlled Other problem of left ovarian cyst, and on compression fracture, chronic anemia remains stable DVT prophylaxis Subcu heparin CODE STATUS Full Discussed with daughter in detail Discussed with daughter in detail again today 12/16 Subjective 12/15 The patient was seen and examined in telemetry unit in presence of the daughter She is minimally communicative with dementia and was admitted with fever and cough with vomiting She was discharged from the hospital on the of last month and she was treated for complicated UTI She has not been eating or drinking at the nursing 12/16 The patient was seen and examined in telemetry unit She remains stable without any significant distress at rest She has been minimally communicative as before 12/17 The patient was seen and examined in medical floor She has been stable without any acute distress at rest Tries to communicate Denies any significant pain and/or symptoms 12/18 Patient was seen and examined the medical floor She remains stable with decreasing bowel movement and no acute symptoms No fever and/or chills Review of Systems Review of Systems: Unobtainable due to endotracheal tube Physical Exam Physical Exam: Sitting on a chair without any acute symptoms Constitutional: well developed, well nourished and + ill appearing; no acute distress Eyes: PERRL, conjunctivae normal, anicteric sclerae ENMT: external ear and nose normal, oropharynx normal Neck: trachea midline, no thyromegaly Respiratory: normal respiratory effort; no respiratory distress Auscultation: + diminished lung sounds and + crackles (Minimal crackles at the bases) Cardiovascular: Rate/Rhythm: regular rate and regular rhythm Heart Sounds: no murmur Gastrointestinal (Abdomen): Inspection/Auscultation: abdomen normal to inspection Percussion/Palpation: abdomen soft; abdomen nontender Musculoskeletal: No acute arthritis in any joints Neurologic: moves all extremities; no focal motor deficits Minimally verbal and remains pleasantly confused Lymphatic: no cervical or axillary lymphadenopathy Results & Data Vital Signs (Past 12 Hours) Vital Signs Temp Pulse Resp BP Pulse Ox 12/18/18 07:00 36.6 C 75 18 116/70 91 Medications Administered Current Inpatient Medications Acetaminophen (Tylenol) 650 mg PO Q4H PRN PRN Reason: Pain or Fever Stop: 01/14/19 06:10 Citalopram Hydrobromide (Celexa) 20 mg PO DAILY [facility] Stop: 01/14/19 08:59 Last Admin: 12/18/18 08:34 Dose: 20 mg Documented by: Cyanocobalamin (Vitamin B-12) 1,000 mcg PO DAILY [facility] Stop: 01/14/19 08:59 Last Admin: 12/18/18 08:35 Dose: 1,000 mcg Documented by: Folic Acid (Folvite) 1 mg PO QAM [facility] Stop: 01/14/19 08:59 Last Admin: 12/18/18 08:34 Dose: 1 mg Documented by: Heparin Sodium (Porcine) (Heparin Sodium (Porcine)) 5,000 units SQ Q12 [facility] Stop: 01/14/19 08:59 Last Admin: 12/18/18 08:38 Dose: 5,000 units Documented by: Lactobacillus Acidophilus (Floranex) 4 tab PO BID [facility] Stop: 01/14/19 12:29 Last Admin: 12/18/18 08:35 Dose: 4 tab Documented by: Nitroglycerin (Nitrostat) 0.4 mg SL UD PRN PRN Reason: Chest Pain Stop: 01/14/19 06:10 Ondansetron HCl (Zofran) 4 mg IV Q6H PRN PRN Reason: Nausea Stop: 01/14/19 06:10 Last Admin: 12/15/18 09:25 Dose: 4 mg Documented by: Pantoprazole Sodium (Protonix) 40 mg PO DAILY [facility] Stop: 01/14/19 08:59 Last Admin: 12/18/18 08:36 Dose: 40 mg Documented by: Raspberry (Raspberry) 5 ml PO Q6 [facility] Stop: 12/29/18 12:59 Last Admin: 12/18/18 06:12 Dose: 5 ml Documented by: Tramadol HCl (Ultram) 25 mg PO Q6H PRN PRN Reason: pain Stop: 01/14/19 06:10 Valsartan (Diovan) 160 mg PO DAILY [facility] Stop: 01/14/19 08:59 Last Admin: 12/18/18 08:36 Dose: 160 mg Documented by: Vancomycin HCl (Vancomycin Hcl) 125 mg PO Q6 [facility] Stop: 12/25/18 12:59 Last Admin: 12/18/18 06:12 Dose: 125 mg Documented by: Zinc Sulfate (Zinc Sulfate) 220 mg PO DAILY [facility] Stop: 01/14/19 08:59 Last Admin: 12/18/18 08:36 Dose: 220 mg Documented by:
[2018-12-19] MEDS: RASPBERRY SYRUP 5 ML UDP PO SCH ×2 (05:36→11:43)
[2018-12-19] MEDS: VANCOMYCIN HCL 125 MG/2.5ML SOLN PO SCH ×2 (05:36→11:43)
[2018-12-19 08:41] LABS: Basophils # (auto) 0.01 K/uL (0-0.2); Basophils % (auto) 0.2 %; Eosinophils # (auto) 0.09 K/uL (0-0.5); Eosinophils % (auto) 2.2 %; Hematocrit (blood only) 28.3 % (37-47); Hemoglobin 9.7 g/dL (12.0-16.0); Immature Granulocytes # (auto) 0.02 K/uL (0.00-0.02); Immature Granulocytes % (auto) 0.5 %; Lymphocytes # (auto) 1.29 K/uL (1.2-3.4); Lymphocytes % (auto) 32.1 %; Mean Corpuscular Hgb Conc 34.3 g/dL (32-36); Mean Corpuscular Volume 93.4 fL (80-100); Mean Platelet Volume 9.6 fL (7.4-10.4); Monocytes # (auto) 0.47 K/uL (0.11-0.59); Monocytes % (auto) 11.7 %; Neutrophils # (auto) 2.14 K/uL (1.4-6.5); Neutrophils % (auto) 53.3 %; Platelet Count 246 K/uL (130-400); RDW Coefficient of Variation 13.1 % (11.5-14.5); RDW Standard Deviation 44.5 fL (36.4-46.3); Red Blood Count 3.03 M/uL (4.2-5.4); White Blood Count 4.02 K/uL (4.8-10.8)
[2018-12-19 09:16] LABS: BUN Creatinine Ratio 10.8 (10-20); Calcium 8.8 mg/dl (8.5-10.1); Creatinine Clr Calc Pharmacy 36.8 ml/min; Est GFR (African American) 73.5; Est GFR (Non-African American) 63.4; Magnesium 1.8 mg/dl (1.8-2.4)
[2018-12-19] MEDS ORDERED: POTASSIUM CHLORIDE 20 MEQ TABCR PO STA (09:36)
[2018-12-19] MEDS: CITALOPRAM 20 MG TAB PO SCH (09:44)
[2018-12-19] MEDS: VALSARTAN 80 MG TAB PO SCH (09:45)
[2018-12-19] MEDS: LACTOBACILLUS ACIDOPHILUS (FLORANEX) TAB PO SCH (09:48)
[2018-12-19] MEDS: PANTOprazole 40 MG TAB PO SCH (09:52)
[2018-12-19] MEDS: FOLIC ACID 1 MG TAB PO SCH (09:52)
[2018-12-19] MEDS: CYANOCOBALAMIN 500 MCG TABLET (VITAMIN B-12) PO SCH (09:53)
[2018-12-19] MEDS: ZINC SULFATE 220 MG CAPSULE PO SCH (09:54)
[2018-12-19] MEDS: HEPARIN SOD 5,000 UNIT/0.5 ML VIAL SQ SCH (10:05)
--- NOTE | 2018-12-19 11:31 | Hospitalist Progress Note ---
Date of Service December 19, 2018 Assessment & Plan (1) C. difficile colitis: Admitted with fever, nausea and vomiting with generalized weakness Met the criteria of sepsis on admission with fever, tachycardia and increasing lactic acid Started with intravenous vancomycin and Zosyn and those have been discontinued Has been getting cautious amount of IV fluid Recent admission with metabolic encephalopathy secondary to UTI and treated with intravenous antibiotic Stool came back positive for C. difficile toxin Started with oral vancomycin and Lactinex We will recheck lactic acid in 6 hours-lactic acid normalized Still having diarrhea We will continue vancomycin We will transfer the patient to medical floor To bowel movement since last night Clinically stable with stable labs Continue current treatment Decreasing bowel movement and denies any acute symptoms No more diarrhea and denies any abdominal pain, nausea or vomiting She will be discharged back to personal long term this afternoon Blood cultures and urine culture have been negative White count has improved (2) Generalized weakness: Secondary to recent C. difficile infection Will need PT and OT evaluation Will need PT and OT evaluation in the personal long term (3) Vascular dementia: Seems to be stable She has been minimally verbal No acute delirium (4) HTN (hypertension): Blood pressure is controlled Other problem of left ovarian cyst, and on compression fracture, chronic anemia remains stable DVT prophylaxis Subcu heparin CODE STATUS Full Discussed with daughter in detail Discussed with daughter in detail again today 12/16 We will go back to personal long term this afternoon Subjective 12/15 The patient was seen and examined in telemetry unit in presence of the daughter She is minimally communicative with dementia and was admitted with fever and cough with vomiting She was discharged from the hospital on the of last month and she was treated for complicated UTI She has not been eating or drinking at the nursing 12/16 The patient was seen and examined in telemetry unit She remains stable without any significant distress at rest She has been minimally communicative as before 12/17 The patient was seen and examined in medical floor She has been stable without any acute distress at rest Tries to communicate Denies any significant pain and/or symptoms 12/18 Patient was seen and examined the medical floor She remains stable with decreasing bowel movement and no acute symptoms No fever and/or chills 12/19 The patient was seen and examined in medical floor She remains stable without any symptoms She has been eating and drinking reasonably Denies any significant symptoms Review of Systems Review of Systems: Unobtainable due to endotracheal tube Physical Exam Physical Exam: No apparent distress at rest Constitutional: well developed, well nourished and + ill appearing; no acute distress Eyes: PERRL, conjunctivae normal, anicteric sclerae ENMT: external ear and nose normal, oropharynx normal Neck: trachea midline, no thyromegaly Respiratory: normal respiratory effort; no respiratory distress Auscultation: + diminished lung sounds and + crackles (Minimal crackles at the bases) Cardiovascular: Rate/Rhythm: regular rate and regular rhythm Heart Sounds: no murmur Gastrointestinal (Abdomen): Inspection/Auscultation: abdomen normal to inspection Percussion/Palpation: abdomen soft; abdomen nontender Neurologic: moves all extremities; no focal motor deficits Has dementia and minimally verbal Lymphatic: no cervical or axillary lymphadenopathy Results & Data Vital Signs (Past 12 Hours) Vital Signs Temp Pulse Resp BP Pulse Ox 12/19/18 11:15 36.7 C 68 16 166/78 H 94 12/19/18 08:22 36.7 C 68 16 166/78 H 94 12/19/18 07:00 36.7 C 75 20 157/72 H 94 Laboratory Results Short CBC 12/19/18 Range/Units 08:29 WBC 4.02 L (4.8-10.8) K/uL Hgb 9.7 L (12.0-16.0) g/dL Hct 28.3 L (37-47) % Plt Count 246 (130-400) K/uL BMP 12/19/18 08:29 Sodium 137 Potassium 3.0 L Chloride 104 Carbon Dioxide 27 BUN 9 Creatinine 0.82 Glucose 110 H Calcium 8.8 Medications Administered Current Inpatient Medications Acetaminophen (Tylenol) 650 mg PO Q4H PRN PRN Reason: Pain or Fever Stop: 01/14/19 06:10 Citalopram Hydrobromide (Celexa) 20 mg PO DAILY CED Stop: 01/14/19 08:59 Last Admin: 12/19/18 09:44 Dose: 20 mg Documented by: Cyanocobalamin (Vitamin B-12) 1,000 mcg PO DAILY CED Stop: 01/14/19 08:59 Last Admin: 12/19/18 09:53 Dose: 1,000 mcg Documented by: Folic Acid (Folvite) 1 mg PO QAM CED Stop: 01/14/19 08:59 Last Admin: 12/19/18 09:52 Dose: 1 mg Documented by: Heparin Sodium (Porcine) (Heparin Sodium (Porcine)) 5,000 units SQ Q12 CED Stop: 01/14/19 08:59 Last Admin: 12/19/18 10:05 Dose: 5,000 units Documented by: Lactobacillus Acidophilus (Floranex) 4 tab PO BID CED Stop: 01/14/19 12:29 Last Admin: 12/19/18 09:48 Dose: 4 tab Documented by: Nitroglycerin (Nitrostat) 0.4 mg SL UD PRN PRN Reason: Chest Pain Stop: 01/14/19 06:10 Ondansetron HCl (Zofran) 4 mg IV Q6H PRN PRN Reason: Nausea Stop: 01/14/19 06:10 Last Admin: 12/15/18 09:25 Dose: 4 mg Documented by: Pantoprazole Sodium (Protonix) 40 mg PO DAILY [facility] Stop: 01/14/19 08:59 Last Admin: 12/19/18 09:52 Dose: 40 mg Documented by: Raspberry (Raspberry) 5 ml PO Q6 CED Stop: 12/29/18 12:59 Last Admin: 12/19/18 05:36 Dose: 5 ml Documented by: Tramadol HCl (Ultram) 25 mg PO Q6H PRN PRN Reason: pain Stop: 01/14/19 06:10 Valsartan (Diovan) 160 mg PO DAILY [facility] Stop: 01/14/19 08:59 Last Admin: 12/19/18 09:45 Dose: 160 mg Documented by: Vancomycin HCl (Vancomycin Hcl) 125 mg PO Q6 CED Stop: 12/25/18 12:59 Last Admin: 12/19/18 05:36 Dose: 125 mg Documented by: Zinc Sulfate (Zinc Sulfate) 220 mg PO DAILY CED Stop: 01/14/19 08:59 Last Admin: 12/19/18 09:54 Dose: 220 mg Documented by:
[2018-12-19] MEDS ORDERED: Nursing to Pharmacy Communication ONE (13:35)
[2018-12-19] MEDS ORDERED: LACTOBACILLUS ACIDOPHILUS (FLORANEX) TAB PO SCH ×2 (17:00)
[2018-12-19] MEDS ORDERED: RASPBERRY SYRUP 5 ML UDP PO SCH (18:00)
[2018-12-19] MEDS ORDERED: VANCOMYCIN HCL 125 MG/2.5ML SOLN PO SCH ×2 (18:00)
--- NOTE | 2018-12-20 09:19 | Discharge Summary ---
Date of Service December 20, 2018 Admission HPI Per Admitting Provider DICTATED BY: Arsenio Bustamante MD DATE OF ADMISSION: 12/15/2018 CHIEF COMPLAINT: Cough and vomiting. HISTORY OF PRESENT ILLNESS: This is an 88-year-old female with past medical history significant for vascular dementia, hypertension, osteoporosis, recurrent UTIs, history of L1 compression fracture, anemia. The patient is from [facility], was recently in the hospital for recurrent metabolic encephalopathy secondary to UTI recurrent, PAT and was discharged back on December 12, was brought in because as per nursing staff, they noticed cough in the evening and when they checked her, she also had vomiting few times and her temperature spiked, so they brought down here. The patient is currently in the ER, had temperature spike, mild tachycardia, mild elevation of white count and lactic acid was 2.7, but there is no obvious source of infection. Chest x-ray was okay. UA was negative. The patient is alert and awake, obeys simple commands but mostly seemed to be nonverbal. As per the history also the patient is nonverbal with advanced dementia. I tried to call the daughter, but went to voicemail. Received Zosyn and vancomycin in the ER. Currently, resting comfortable and hemodynamically stable. Could not get any history from the patient. She is alert and awake, moving her neck okay. Admission Exam Per Admitting Provider GENERAL: The patient is alert and awake, does not seem to be in acute distress. VITAL SIGNS: Temperature 38.5, pulse 107, respiratory rate 19, blood pressure 125/81, oxygen 93% on room air. HEENT: No pallor, no icterus. Pupils equal, round, reactive to light. NECK: No neck masses. Supple. CARDIOVASCULAR: S1, S2 heard, regular rate and rhythm, no murmur, no gallop. RESPIRATORY SYSTEM: Normal AP diameter. No accessory muscle use. No wheezing, no crackles. ABDOMEN: Soft, bowel sounds present, nontender. No distention. CENTRAL NERVOUS SYSTEM: Alert and awake, , nonverbal. Obeys simple commands. EXTREMITIES: No edema, no erythema. Principal Diagnosis C. difficile colitis, generalized weakness, vascular dementia, hypertension Discharge Exam Constitutional well developed, well nourished and + ill appearing; no acute distress Eyes PERRL, conjunctivae normal, anicteric sclerae ENMT external ear and nose normal, oropharynx normal Neck trachea midline, no thyromegaly Respiratory normal respiratory effort; no respiratory distress Auscultation: + diminished lung sounds and + crackles (Minimal crackles at the bases) Cardiovascular Rate/Rhythm: regular rate and regular rhythm Heart Sounds: no murmur Gastrointestinal (Abdomen) Inspection/Auscultation: abdomen normal to inspection Percussion/Palpation: abdomen soft; abdomen nontender Neurologic moves all extremities; no focal motor deficits Lymphatic no cervical or axillary lymphadenopathy Discharge Data Allergies Allergy/AdvReac Type Severity Reaction Status Date / Time Fish Containing Products Allergy Unknown "SEAFOOD Verified 12/15/18 01:59 ALLERGY" ; RXN = "SWELLING" iodine Allergy Unknown UNKNOWN Verified 12/15/18 01:59 shellfish derived Allergy Unknown "SWELLING" Verified 12/15/18 01:59 WITH "SEAFOOD" Consultations 12/15/18 04:24 ED Decision to Admit Stat 12/15/18 06:11 Consult Case Management - Discharge Planning Routine Ordered Studies 12/15/18 05:12 CT abd pelvis wo con Urgent CT chest wo con Urgent Hospital Course (1) C. difficile colitis: Admitted with fever, nausea and vomiting with generalized weakness Met the criteria of sepsis on admission with fever, tachycardia and increasing lactic acid Started with intravenous vancomycin and Zosyn and those have been discontinued Has been getting cautious amount of IV fluid Recent admission with metabolic encephalopathy secondary to UTI and treated with intravenous antibiotic Stool came back positive for C. difficile toxin Started with oral vancomycin and Lactinex We will recheck lactic acid in 6 hours-lactic acid normalized Still having diarrhea We will continue vancomycin We will transfer the patient to medical floor To bowel movement since last night Clinically stable with stable labs Continue current treatment Decreasing bowel movement and denies any acute symptoms No more diarrhea and denies any abdominal pain, nausea or vomiting She will be discharged back to [facility] this afternoon Blood cultures and urine culture have been negative White count has improved (2) Generalized weakness: Secondary to recent C. difficile infection Will need PT and OT evaluation Will need PT and OT evaluation in the personal penitentiary (3) Vascular dementia: Seems to be stable She has been minimally verbal No acute delirium (4) HTN (hypertension): Blood pressure is controlled Other problem of left ovarian cyst, and on compression fracture, chronic anemia remains stable DVT prophylaxis Subcu heparin CODE STATUS Full Discussed with daughter in detail Discussed with daughter in detail again today 12/16 We will go back to personal penitentiary this afternoon Total Time Total Time Spent Total Time Spent (In Minutes): 35 minutes Total Time Includes: Examination of the Patient, Discharge Planning, Medication Reconciliation and Communication With Other Providers Discharge Plan Discharge Items Patient Disposition: Personal [facility] Reason For Visit: COUGH, VOMITINGS Discharge Diagnosis: C. difficile colitis, generalized weakness, vascular dementia, hypertension Condition on Discharge: Fair Activity: Resume your previous activity Activity Comment: Will need PT and OT as an outpatient Non-emergency contact: Primary Care Provider Call non-emergency contact if: you have any medication questions and your symptoms worsen Follow-up/Referrals: [facility] EL[facility]ZAR GARCIA [Primary Care Provider] - Diet: Heart Healthy and Vegetarian (Lacto-Ovo) Fluids: 1800ml (7 cups) Diet Texture: Dental soft (bite-sized) Diet Comment: May need supervision with meals. Try to push more fluids orally Addtl Attending Provider Instructions: Please take precaution to avoid fall Pending Studies at Discharge: No Stand-Alone Forms: My [facility] Skilled Items Patient informed of condition?: Yes DNR: No Discharge Level of Care: Other Communicable Disease: No Discharge Prognosis: Stable Lines: None Urinary Catheter: No Medications and DC Order Prescriptions: New vancomycin 1,000 mg Recon Soln 125 mg PO Q6 10 Days Qty: 40 RF: 0 Lactobacillus acidoph-L.bulgar [Floranex] 1 million cell Tablet 4 tab PO BID 15 Days Qty: 120 RF: 0 Continued zinc [Chelated Zinc] 50 mg Tablet 50 mg PO DAILY Qty: 0 RF: 0 alendronate 70 mg Tablet 70 mg PO WK Qty: 0 RF: 0 omeprazole 20 mg Capsule,Delayed Release(Dr/Ec) 20 mg PO DAILY Qty: 0 RF: 0 valsartan 160 mg Tablet 160 mg PO DAILY Qty: 0 RF: 0 citalopram 20 mg tablet 20 mg PO DAILY Qty: 7 RF: 1 cranberry 500 mg Capsule 500 mg PO DAILY RF: 0 tramadol 50 mg Tablet 25 mg PO Q6H PRN (Reason: pain) Qty: 10 RF: 0 folic acid 1 mg Tablet 1 mg PO QAM 30 Days Qty: 30 RF: 0 cyanocobalamin (vitamin B-12) [Vitamin B-12] 1,000 mcg Tablet Extended Release 1,000 mcg PO DAILY RF: 0 Boost 0.04 gram- 1 kcal/mL Liquid 1 ea PO DAILY RF: 0 Discharge Orders: Discharge Order (Routine); Ordered 12/19/18 Ordered By: Mallory Rich Admission Data Admit Date/Time: 12/15/18 05:11 Attending Provider: Mallory Rich Admit Provider: Arsenio Bustamante [facility] Other Providers: Arsenio Bustamante Other Interventions: Discharge Summary Assessment (RN) Last Done: 12/19/18 11:15 DC Date/Time DO NOT enter until pt leaves facility: 12/19/18 13:15
== END 2018-12-19 13:15 | disposition home or self-care (01) | DRG 872 ==
LOC: ED 01:42 → 2S 05:11 → 2W 12-16 15:41